=== PATIENT | female | born 1980 | race Caucasian/White ===

== ENCOUNTER 2017-01-21 15:00 | Inpatient (IN) | payer BC ==
--- NOTE | 2017-01-21 15:38 | ED ---
General Adult HPI - General Chief complaint: Psychiatric Symptoms Stated complaint: Mental Health Time Seen by Provider: 01/21/17 15:31 Source: patient, RN notes reviewed Mode of arrival: ambulatory Limitations: no limitations - History of Present Illness Initial comments: Patient 36-year-old female who presents emergency room today with a chief complaint of increased paranoia. She states that she has had depression over the last 5 months. States she saw her family doctor yesterday was started on Zoloft. She states that she's felt somewhat manic since beginning this medication. States had a total of 2 doses. Patient does admit to increased paranoia the last 2 months. She states that she's not been sleeping well. Patient denies any other physical complaints. Patient denies any recent fever, chills, shortness of breath, chest pain, back pain, abdominal pain, nausea or vomiting, numbness or tingling, dysuria or hematuria, constipation or diarrhea, headaches or visual changes, or any other complaints. - Related Data Home Medications Medication Instructions Recorded Confirmed Sertraline HCl [Zoloft] 50 mg PO DAILY 01/21/17 01/21/17 Allergies Allergy/AdvReac Type Severity Reaction Status Date / Time No Known Allergies Allergy Verified 01/21/17 16:07 Review of Systems ROS Statement: Those systems with pertinent positive or pertinent negative responses have been documented in the HPI. ROS Other: All systems not noted in ROS Statement are negative. Past Medical History Past Medical History: No Reported History History of Any Multi-Drug Resistant Organisms: None Reported Past Surgical History: Section Past Psychological History: Anxiety, Depression Smoking Status: Current every day smoker Past Alcohol Use History: Occasional Past Drug Use History: None Reported General Exam - General Exam Comments Initial Comments: General: The patient is awake and alert, in no distress, and does not appear acutely ill. Eye: Pupils are equal, round and reactive to light, extra-ocular movements are intact. No nystagmus. There is normal conjunctiva bilaterally. No signs of icterus. Ears, nose, mouth and throat: There are moist mucous membranes and no oral lesions. Neck: The neck is supple, there is no tenderness or JVD. Cardiovascular: There is a regular rate and rhythm. No murmur, rub or gallop is appreciated. Respiratory: Lungs are clear to auscultation, respirations are non-labored, breath sounds are equal. No wheezes, stridor, rales, or rhonchi. Musculoskeletal: Normal ROM, no tenderness. Strength 5/5. Sensation intact. Pulses equal bilaterally 2+. Neurological: A&O x 3. CN II-XII intact, There are no obvious motor or sensory deficits. Coordination appears grossly intact. Speech is normal. Skin: Skin is warm and dry and no rashes or lesions are noted. Psychiatric: Cooperative, appropriate mood & affect, normal judgment. Limitations: no limitations Course Vital Signs 01/21/17 15:11 Temperature 98.7 F Pulse Rate 85 Respiratory 20 Rate Blood Pressure 129/71 O2 Sat by Pulse 99 Oximetry Medical Decision Making - Medical Decision Making Patient seen here in the emergency room by mental health. They've recommended admission to the hospital. Patient willing to sign himself in. - Lab Data Lab Results 01/21/17 01/21/17 Range/Units 15:50 15:50 Urine HCG, Qual Not Detected (Not Detectd) Urine Opiates Screen Not Detected (NotDetected) Ur Oxycodone Screen Not Detected (NotDetected) Urine Methadone Screen Not Detected (NotDetected) Ur Propoxyphene Screen Not Detected (NotDetected) Ur Barbiturates Screen Not Detected (NotDetected) U Tricyclic Antidepress Not Detected (NotDetected) Ur Phencyclidine Scrn Not Detected (NotDetected) Ur Amphetamines Screen Not Detected (NotDetected) U Methamphetamines Scrn Not Detected (NotDetected) U Benzodiazepines Scrn Not Detected (NotDetected) Urine Cocaine Screen Not Detected (NotDetected) U Marijuana (THC) Screen Not Detected (NotDetected) Disposition Clinical Impression: depression Disposition: TRANSFER TO PSYCH HOSP/UNIT Condition: Stable
[2017-01-21] MEDS ORDERED: LORazepam 1 MG TAB PO STA (16:48)
[2017-01-21] MEDS ORDERED: ZIPRASIDONE 20 MG VIAL IM PRN (17:46)
[2017-01-21] MEDS ORDERED: MAG HYDROX/AL HYDROX/SIMETH 30 ML CUP PO PRN (17:46)
[2017-01-21] MEDS ORDERED: ACETAMINOPHEN TAB 325 MG TAB PO PRN (17:46)
[2017-01-21] MEDS ORDERED: MAGNESIUM HYDROXIDE 2,400 MG/10 ML CUP PO PRN (17:46)
[2017-01-21] MEDS ORDERED: LORazepam 2 MG/ML SYRINGE IM PRN (17:49)
[2017-01-21] MEDS: LORazepam 1 MG TAB PO PRN (21:24)
[2017-01-22 09:02] VITALS: BMI 26.6
[2017-01-22] MEDS: NICOTINE 14MG/24HR PATCH TRANSDERM SCH (09:27)
[2017-01-22 10:07] LABS: Basophils % (A) 0 %; CHCM 31.4; Eosinophils # (A) 0.1 k/uL (0-0.7); Eosinophils % (A) 0 %; HCT 43.4 % (34.0-46.0); HGB 13.5 gm/dL (11.4-16.0); Hypochromasia Slight; Luc # (Auto) 0.13; Luc % (Auto) 1; Lymphocytes # (A) 1.3 k/uL (1.0-4.8); Lymphocytes % (A) 13 %; MCH 27.8 pg (25.0-35.0); MCHC 31.1 g/dL (31.0-37.0); MCV 89.4 fL (80.0-100.0); Mean Platelet Volume 8.2; Monocytes # (A) 0.4 k/uL (0-1.0); Monocytes % (A) 4 %; Neutrophils # (A) 8.1 k/uL (1.3-7.7); Neutrophils % (A) 81 %; RBC 4.86 m/uL (3.80-5.40); RDW 13.5 % (11.5-15.5); WBC (Perox) 10.21
[2017-01-22 10:53] LABS: ALT 17 U/L (9-52); AST 15 U/L (14-36); Alkaline Phosphatase 63 U/L (38-126); Anion Gap 12 mmol/L; Blood Urea Nitrogen 9 mg/dL (7-17); Carbon Dioxide 26 mmol/L (22-30); Chloride 104 mmol/L (98-107); Glucose 86 mg/dL (74-99); Non-African American GFR(MDRD) 58 (>60 ml/min/1.73 sqM); Potassium 4.5 mmol/L (3.5-5.1); Sodium 142 mmol/L (137-145); Total Bilirubin 0.7 mg/dL (0.2-1.3); Total Protein 7.1 g/dL (6.3-8.2)
[2017-01-22] MEDS: LORazepam 1 MG TAB PO PRN (14:25)
--- NOTE | 2017-01-22 15:48 | P.CONS ---
History of Present Illness - Reason for Consult Consult date: 01/22/17 Medical management - History of Present Illness This is a 36-year-old female with no primary care physician. Patient states that she has had depression for a long time and recently went to a physician in [place] and placed on Zoloft. She states she has been suddenly manic related night, keeping her family up, paranoid thoughts. She came into emergency center for evaluation. HCG was not detected. Urine drug screen was negative. Patient has been admitted to the psychiatric unit. She denies any medical complaints. Review of Systems All systems: negative Constitutional: Denies chills, Denies fever Eyes: denies blurred vision, denies pain Ears, nose, mouth and throat: Denies headache, Denies sore throat Cardiovascular: Denies chest pain, Denies shortness of breath Respiratory: Denies cough Gastrointestinal: Denies abdominal pain, Denies diarrhea, Denies nausea, Denies vomiting Genitourinary: Denies dysuria, Denies hematuria Musculoskeletal: Denies myalgias Integumentary: Denies pruritus, Denies rash Neurological: Denies numbness, Denies weakness Psychiatric: Reports confusion, Reports depression, Reports irritability, Reports mood swings, Denies anxiety, Denies suicidal ideation Endocrine: Denies fatigue, Denies weight change Past Medical History Past Medical History: No Reported History History of Any Multi-Drug Resistant Organisms: None Reported Past Surgical History: Section Past Anesthesia/Blood Transfusion Reactions: No Reported Reaction Past Psychological History: Anxiety, Depression Smoking Status: Current every day smoker Past Alcohol Use History: Occasional Additional Past Alcohol Use History / Comment(s): Patient is a smoker of one pack of cigarettes per day for 15 years. She denies any medical marijuana, marijuana, street drug use. Pt. admits to occasional alcohol use-Last drink was 3 weeks ago. Past Drug Use History: None Reported Additional Drug Use History / Comment(s): Pt. denies drug use. UDS negative. - Past Family History Mother Family Medical History: Cancer Additional Family Medical History / Comment(s): Ovaraian Cancer-Patient's mother is alive in her 60s. Father Family Medical History: Cancer Additional Family Medical History / Comment(s): Skin Cancer. Father is alive at age 67 with history of Depression. Brother(s) Family Medical History: No Reported History Additional Family Medical History / Comment(s): Patient has one brother with history of Depression. Sister(s) Family Medical History: No Reported History Additional Family Medical History / Comment(s): Patient has 1 sister with no major medical problems. Medications and Allergies Home Medications Medication Instructions Recorded Confirmed Type Sertraline HCl [Zoloft] 50 mg PO DAILY 01/21/17 01/21/17 History Allergies Allergy/AdvReac Type Severity Reaction Status Date / Time No Known Allergies Allergy Verified 01/21/17 19:23 Physical Exam Vitals: Vital Signs Temp Pulse Pulse Resp BP BP Pulse Ox 01/22/17 06:34 97.9 F 74 20 131/78 01/21/17 18:14 77 16 119/60 01/21/17 17:58 97.9 F 75 18 136/78 99 01/21/17 15:11 98.7 F 85 20 129/71 99 Intake and Output 01/21/17 01/22/17 01/22/17 22:59 06:59 14:59 Other: Weight 77.111 kg 77.111 kg Patient Weight 01/23/17 06:59 Weight 77.111 kg Gen: This is a 36-year-old female. She is cooperative and appears to be in no acute distress. HEENT: Head is atraumatic, normocephalic. Pupils equal, round. Sclerae is anicteric. NECK: Supple. No JVD. No lymphadenopathy. No thyromegaly. LUNGS: Clear to auscultation. No wheezes or rhonchi. No intercostal retractions. HEART: Regular rate and rhythm. No murmur. ABDOMEN: Soft. Bowel sounds are present. No masses. No tenderness. EXTREMITIES: No pedal edema. No calf tenderness. NEUROLOGICAL: Patient is awake, alert and oriented x3. Cranial nerves 2 through 12 are grossly intact. Results CBC & Chem 7: 01/22/17 09:50 01/22/17 09:50 Labs: Abnormal Lab Results - Last 24 Hours (Table) 01/22/17 01/22/17 Range/Units 09:50 09:50 Neutrophils # 8.1 H (1.3-7.7) k/uL Creatinine 1.07 H (0.52-1.04) mg/dL Assessment and Plan Plan: 1. Depression with mood swings after recently starting Zoloft. Patient admitted to the mental health unit. Continue current plan of care. 2. Tobacco use and dependence. Continue nicotine patch. Impression and plan of care have been directed as dictated by the signing physician. Lesvia Viera nurse practitioner acting as scribe for signing physician.
[2017-01-22] MEDS ORDERED: ARIPiprazole 5 MG TAB PO SCH (17:00)
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
[2017-01-23] MEDS: NICOTINE 14MG/24HR PATCH TRANSDERM SCH (09:31)
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
[2017-01-23] MEDS: ARIPiprazole 10 MG TAB PO SCH (21:47)
[2017-01-24] MEDS: NICOTINE 14MG/24HR PATCH TRANSDERM SCH (09:07)
[2017-01-24] MEDS ORDERED: FLUCONAZOLE 150 MG TAB PO STA (20:10)
[2017-01-24] MEDS: ARIPiprazole 10 MG TAB PO SCH (20:50)
[2017-01-25] MEDS: NICOTINE 14MG/24HR PATCH TRANSDERM SCH (08:53)
--- NOTE | 2017-01-25 16:43 | P.PN ---
Progress Note - Text Interval history: Patient is seen in cross coverage today for Dr. Gordillo. She reports that she is feeling much better. Her mood is improved. She relays that the worries and paranoid thoughts are doing much better. She feels like the Abilify is doing well for her and she seems to be tolerating it well. She is sleeping well. She does talk about looking towards discharge. Mental status exam: She is alert and cooperative with the interview. Her speech is fluent, not rapid or pressured. Her thought processes are organized. Her mood is improved and she does not verbalize any mark delusions. She denies any thoughts of harm to self or others. She does not verbalize any hallucinations. Plan: Patient will be maintained on current psychotropic medication regimen. Dr. Gordillo will resume care this patient starting tomorrow.
--- NOTE | 2017-01-25 17:52 | P.PN ---
Progress Note - Text Date of service: 01/24/2017 This note is dictated 01/25/2017, as the previous days note was not found in the system. Patient was seen on 01/24/2017 in cross coverage for Dr Gordillo. Status was improved and patient appeared to be responding well to Abilify. She seemed to be tolerating the Abilify well. She discussed symptoms that she was experiencing that precipitated the inpatient hospitalization. Psychiatric symptoms appeared to be responding very well to the Abilify. Abilify was maintained with plan to monitor for any medication side effects and monitor her ongoing response.
[2017-01-25] MEDS: ARIPiprazole 10 MG TAB PO SCH (20:22)
[2017-01-26 06:44] VITALS: BP 99/57; PULSE 57; RESP 16; TEMP 98.4
[2017-01-26] MEDS: NICOTINE 14MG/24HR PATCH TRANSDERM SCH (08:49)
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
== END 2017-01-26 14:58 | disposition home or self-care (01) | DRG 885 ==
LOC: EC 15:00 → 3MHU 17:44
PROVIDERS: ADMIT Psychiatry & Neurology Psychiatry; ATTEND Psychiatry & Neurology Psychiatry
DX: F29 Unspecified psychosis not due to a substance or known physiological condition (principal); F17.210 Nicotine dependence, cigarettes, uncomplicated; F43.0 Acute stress reaction; F43.10 Post-traumatic stress disorder, unspecified; Z79.899 Other long term (current) drug therapy; Z80.8 Family history of malignant neoplasm of other organs or systems; Z81.8 Family history of other mental and behavioral disorders; Z91.410 Personal history of adult physical and sexual abuse
CPT/HCPCS: 80053; 80306; 81025; 82075; 84443; 85025; 99285

== ENCOUNTER 2018-06-11 16:01 | Inpatient (IN) | payer BC ==
--- NOTE | 2018-06-11 16:50 | ED ---
Psych HPI - General Chief Complaint: Psychiatric Symptoms Stated Complaint: Mental Health Time Seen by Provider: 06/11/18 16:39 Source: patient Mode of arrival: ambulatory - History of Present Illness Initial Comments: Patient is a 38-year-old female presents with a chief complaint of suicidal ideations and depression for 5 days. Patient says that she has a history of depression since the of her last child 2 years ago. She states she has been on venlafaxine since that time, there is been no recent changes to that medication, and she states that until 5 days ago she felt fine. Patient says she has a suicidal plan which includes turning her car on in the garage and sitting in her car. Patient does not have any previous suicide attempts. She is otherwise healthy. - Related Data Home Medications Medication Instructions Recorded Confirmed ARIPiprazole [Abilify] 5 mg PO HS 06/11/18 06/11/18 Venlafaxine HCl [Effexor XR] 75 mg PO DAILY 06/11/18 06/11/18 clonazePAM [KlonoPIN] 0.5 mg PO BID PRN 06/11/18 06/11/18 Allergies Allergy/AdvReac Type Severity Reaction Status Date / Time No Known Allergies Allergy Verified 06/11/18 16:55 Review of Systems ROS Statement: Those systems with pertinent positive or pertinent negative responses have been documented in the HPI. ROS Other: All systems not noted in ROS Statement are negative. Past Medical History Past Medical History: No Reported History History of Any Multi-Drug Resistant Organisms: None Reported Past Surgical History: Section Past Anesthesia/Blood Transfusion Reactions: No Reported Reaction Past Psychological History: Anxiety, Depression Smoking Status: Current every day smoker Past Alcohol Use History: Occasional Past Drug Use History: None Reported - Past Family History Mother Family Medical History: Cancer Additional Family Medical History / Comment(s): Ovaraian Cancer-Patient's mother is alive in her 60s. Father Family Medical History: Cancer Additional Family Medical History / Comment(s): Skin Cancer. Father is alive at age 67 with history of Depression. Brother(s) Family Medical History: No Reported History Additional Family Medical History / Comment(s): Patient has one brother with history of Depression. Sister(s) Family Medical History: No Reported History Additional Family Medical History / Comment(s): Patient has 1 sister with no major medical problems. General Exam Limitations: no limitations General appearance: alert, in no apparent distress Head exam: Present: atraumatic, normocephalic Eye exam: Present: normal appearance ENT exam: Present: normal exam Neck exam: Present: normal inspection Respiratory exam: Present: normal lung sounds bilaterally. Absent: respiratory distress Cardiovascular Exam: Present: regular rate, normal rhythm GI/Abdominal exam: Present: soft. Absent: distended, tenderness Rectal exam: Present: deferred External exam: Present: normal external exam Extremities exam: Present: normal inspection Back exam: Present: normal inspection Neurological exam: Present: alert, oriented X3 Psychiatric exam: Present: normal affect, depressed Skin exam: Present: warm, dry, intact Course Vital Signs 06/11/18 16:32 Temperature 98.5 F Pulse Rate 97 Respiratory 18 Rate Blood Pressure 121/69 O2 Sat by Pulse 99 Oximetry Medical Decision Making - Medical Decision Making The reasons chief complaint of suicidal ideations and a plan to turn her car on in the garage and sit in her car. she is here with her . on initial evaluation, VS stable, patient no in distress. she is coherent and has a good grasp of reality. no psychotic features present at this time. patient to be evaluated with breath alcohol and urine hcg. patient to be evaluated by EPS. 8:53 PM Patient was evaluated by [facility]. Patient signed in voluntarily. She will be admitted to the psychiatric floor. - Lab Data Lab Results 06/11/18 06/11/18 Range/Units 17:00 17:00 Urine Color Colorless Urine Appearance Clear (Clear) Urine pH 6.5 (5.0-8.0) Ur Specific [place] 1.003 (1.001-1.035) Urine Protein Negative (Negative) Urine Glucose (UA) Negative (Negative) Urine Ketones Negative (Negative) Urine Blood Negative (Negative) Urine Nitrite Negative (Negative) Urine Bilirubin Negative (Negative) Urine Urobilinogen <2.0 (<2.0) mg/dL Ur Leukocyte Esterase Negative (Negative) Urine HCG, Qual Not Detected (Not Detectd) Urine Opiates Screen Not Detected (NotDetected) Ur Oxycodone Screen Not Detected (NotDetected) Urine Methadone Screen Not Detected (NotDetected) Ur Propoxyphene Screen Not Detected (NotDetected) Ur Barbiturates Screen Not Detected (NotDetected) U Tricyclic Antidepress Not Detected (NotDetected) Ur Phencyclidine Scrn Not Detected (NotDetected) Ur Amphetamines Screen Not Detected (NotDetected) U Methamphetamines Scrn Not Detected (NotDetected) U Benzodiazepines Scrn Not Detected (NotDetected) Urine Cocaine Screen Not Detected (NotDetected) U Marijuana (THC) Screen Not Detected (NotDetected) Disposition Clinical Impression: Depression, Suicidal ideation Disposition: ADMITTED IP TO THIS HOSP Condition: Good Decision to Admit Reason: Admit from EC - Out of Hospital Transfer - Req. Specs Out of Hospital Transfer - Requested Specifics: Psychiatric Non-ICU
[2018-06-11 18:14] LABS: Appearance,Urine Clear (Clear); Bilirubin,Urine Negative (Negative); Blood,Urine Negative (Negative); Color,Urine Colorless; Glucose,Urine (UA) Negative (Negative); Ketones,Urine Negative (Negative); Leukocyte Esterase,Urine Negative (Negative); Nitrite,Urine Negative (Negative); PH, Urine 6.5 (5.0-8.0); Protein,Urine Negative (Negative); Specific Gravity,Urine 1.003 (1.001-1.035); Urobilinogen,Urine <2.0 mg/dL (<2.0)
[2018-06-11 18:25] LABS: Amphetamine Screen,Urine Not Detected (NotDetected); Barbiturate Screen,Urine Not Detected (NotDetected); Benzodiazepines Screen,Urine Not Detected (NotDetected); Cocaine Screen,Urine Not Detected (NotDetected); Methadone Screen, Urine Not Detected (NotDetected); Opiate Screen,Urine Not Detected (NotDetected); Oxycodone Screen, Urine Not Detected (NotDetected); Phencyclidine Screen,Urine Not Detected (NotDetected); Tricyclic Antidepressant,Urine Not Detected (NotDetected); Urn Cannabinoid Scrn Not Detected (NotDetected)
[2018-06-11] MEDS ORDERED: MAG HYDROX/AL HYDROX/SIMETH 30 ML CUP PO PRN (21:35)
[2018-06-11] MEDS ORDERED: MAGNESIUM HYDROXIDE 2,400 MG/10 ML CUP PO PRN (21:35)
[2018-06-11] MEDS ORDERED: ACETAMINOPHEN TAB 325 MG TAB PO PRN (21:35)
[2018-06-11] MEDS ORDERED: ZIPRASIDONE 20 MG VIAL IM PRN (21:35)
[2018-06-11] MEDS ORDERED: clonazePAM 0.5 MG TAB PO PRN (21:37)
[2018-06-11] MEDS ORDERED: ARIPiprazole 10 MG TAB PO SCH (21:45)
[2018-06-11] MEDS: NICOTINE 14MG/24HR PATCH TRANSDERM SCH (22:02)
[2018-06-11 23:26] VITALS: BMI 28.0
[2018-06-12] MEDS: NICOTINE 14MG/24HR PATCH TRANSDERM SCH (08:27)
[2018-06-12] MEDS ORDERED: VENLAFAXINE HCL 75 MG TAB PO SCH (09:00)
[2018-06-12 09:14] LABS: Basophils % (A) 0 %; Eosinophils # (A) 0.3 k/uL (0-0.7); Eosinophils % (A) 6 %; HCT 45.3 % (34.0-46.0); HGB 14.8 gm/dL (11.4-16.0); Lymphocytes # (A) 1.7 k/uL (1.0-4.8); Lymphocytes % (A) 31 %; MCH 30.7 pg (25.0-35.0); MCHC 32.6 g/dL (31.0-37.0); MCV 94.4 fL (80.0-100.0); Mean Platelet Volume 7.5; Monocytes # (A) 0.3 k/uL (0-1.0); Monocytes % (A) 5 %; Neutrophils # (A) 2.9 k/uL (1.3-7.7); Neutrophils % (A) 55 %; Platelet Count 259 k/uL (150-450); RDW 11.9 % (11.5-15.5); WBC 5.3 k/uL (3.8-10.6)
[2018-06-12 09:30] LABS: ALT 23 U/L (9-52); AST 20 U/L (14-36); Alkaline Phosphatase 45 U/L (38-126); Anion Gap 8 mmol/L; Bilirubin, Delta 0.3 mg/dL (0.0-0.2); Bilirubin,Unconjugated 0.1 mg/dL (0.0-1.1); Blood Urea Nitrogen 18 mg/dL (7-17); Calcium 9.2 mg/dL (8.4-10.2); Carbon Dioxide 27 mmol/L (22-30); Chloride 107 mmol/L (98-107); Cholesterol 170 mg/dL (<200); Glucose 122 mg/dL (74-99); HDL Cholesterol 49 mg/dL (40-60); LDL Cholesterol,Calculated 107 mg/dL (0-99); Potassium 4.8 mmol/L (3.5-5.1); Sodium 142 mmol/L (137-145); Total Bilirubin 0.4 mg/dL (0.2-1.3); Total Protein 6.4 g/dL (6.3-8.2); Triglycerides 72 mg/dL (<150)
--- NOTE | 2018-06-12 12:09 | P.HP ---
Psychiatric H&P - . H&P Date: 06/12/18 History & Physical: Allergies Allergy/AdvReac Type Severity Reaction Status Date / Time No Known Allergies Allergy Verified 06/11/18 21:55 Vital Signs Temp 97.9 F 06/12/18 06:38 Pulse 72 06/12/18 06:38 Resp 18 06/12/18 06:38 BP 106/60 06/12/18 06:38 Pulse Ox 99 06/11/18 16:32 Intake & Output 06/11/18 06/12/18 06/12/18 18:59 06:59 18:59 Weight 81.647 kg 81.2 kg Laboratory Last Values WBC 5.3 k/uL (3.8-10.6) 06/12/18 08:42 RBC 4.80 m/uL (3.80-5.40) 06/12/18 08:42 Hgb 14.8 gm/dL (11.4-16.0) 06/12/18 08:42 Hct 45.3 % (34.0-46.0) 06/12/18 08:42 MCV 94.4 fL (80.0-100.0) 06/12/18 08:42 MCH 30.7 pg (25.0-35.0) 06/12/18 08:42 MCHC 32.6 g/dL (31.0-37.0) 06/12/18 08:42 RDW 11.9 % (11.5-15.5) 06/12/18 08:42 Plt Count 259 k/uL (150-450) 06/12/18 08:42 Neutrophils % 55 % 06/12/18 08:42 Lymphocytes % 31 % 06/12/18 08:42 Monocytes % 5 % 06/12/18 08:42 Eosinophils % 6 % 06/12/18 08:42 Basophils % 0 % 06/12/18 08:42 Neutrophils # 2.9 k/uL (1.3-7.7) 06/12/18 08:42 Lymphocytes # 1.7 k/uL (1.0-4.8) 06/12/18 08:42 Monocytes # 0.3 k/uL (0-1.0) 06/12/18 08:42 Eosinophils # 0.3 k/uL (0-0.7) 06/12/18 08:42 Basophils # 0.0 k/uL (0-0.2) 06/12/18 08:42 Sodium 142 mmol/L (137-145) 06/12/18 08:42 Potassium 4.8 mmol/L (3.5-5.1) 06/12/18 08:42 Chloride 107 mmol/L (98-107) 06/12/18 08:42 Carbon Dioxide 27 mmol/L (22-30) 06/12/18 08:42 Anion Gap 8 mmol/L 06/12/18 08:42 BUN 18 mg/dL (7-17) H 06/12/18 08:42 Creatinine 0.92 mg/dL (0.52-1.04) 06/12/18 08:42 Est GFR (CKD-EPI)AfAm >90 (>60 ml/min/1.73 sqM) 06/12/18 08:42 Est GFR (CKD-EPI)NonAf 79 (>60 ml/min/1.73 sqM) 06/12/18 08:42 Glucose 122 mg/dL (74-99) H 06/12/18 08:42 Calcium 9.2 mg/dL (8.4-10.2) 06/12/18 08:42 Total Bilirubin 0.4 mg/dL (0.2-1.3) 06/12/18 08:42 Conjugated Bilirubin 0.0 mg/dL (0.0-0.3) 06/12/18 08:42 Unconjugated Bilirubin 0.1 mg/dL (0.0-1.1) 06/12/18 08:42 Delta Bilirubin 0.3 mg/dL (0.0-0.2) H 06/12/18 08:42 AST 20 U/L (14-36) 06/12/18 08:42 ALT 23 U/L (9-52) 06/12/18 08:42 Alkaline Phosphatase 45 U/L (38-126) 06/12/18 08:42 Total Protein 6.4 g/dL (6.3-8.2) 06/12/18 08:42 Albumin 4.0 g/dL (3.5-5.0) 06/12/18 08:42 Triglycerides 72 mg/dL (<150) 06/12/18 08:42 Cholesterol 170 mg/dL (<200) 06/12/18 08:42 LDL Cholesterol, Calc 107 mg/dL (0-99) H 06/12/18 08:42 HDL Cholesterol 49 mg/dL (40-60) 06/12/18 08:42 TSH 1.420 mIU/L (0.465-4.680) 06/12/18 08:42 Urine Color Colorless 06/11/18 17:00 Urine Appearance Clear (Clear) 06/11/18 17:00 Urine pH 6.5 (5.0-8.0) 06/11/18 17:00 Ur Specific [place] 1.003 (1.001-1.035) 06/11/18 17:00 Urine Protein Negative (Negative) 06/11/18 17:00 Urine Glucose (UA) Negative (Negative) 06/11/18 17:00 Urine Ketones Negative (Negative) 06/11/18 17:00 Urine Blood Negative (Negative) 06/11/18 17:00 Urine Nitrite Negative (Negative) 06/11/18 17:00 Urine Bilirubin Negative (Negative) 06/11/18 17:00 Urine Urobilinogen <2.0 mg/dL (<2.0) 06/11/18 17:00 Ur Leukocyte Esterase Negative (Negative) 06/11/18 17:00 Urine HCG, Qual Not Detected (Not Detectd) 06/11/18 17:00 Urine Opiates Screen Not Detected (NotDetected) 06/11/18 17:00 Ur Oxycodone Screen Not Detected (NotDetected) 06/11/18 17:00 Urine Methadone Screen Not Detected (NotDetected) 06/11/18 17:00 Ur Propoxyphene Screen Not Detected (NotDetected) 06/11/18 17:00 Ur Barbiturates Screen Not Detected (NotDetected) 06/11/18 17:00 U Tricyclic Antidepress Not Detected (NotDetected) 06/11/18 17:00 Ur Phencyclidine Scrn Not Detected (NotDetected) 06/11/18 17:00 Ur Amphetamines Screen Not Detected (NotDetected) 06/11/18 17:00 U Methamphetamines Scrn Not Detected (NotDetected) 06/11/18 17:00 U Benzodiazepines Scrn Not Detected (NotDetected) 10/26/18 17:00 Urine Cocaine Screen Not Detected (NotDetected) 06/11/18 17:00 U Marijuana (THC) Screen Not Detected (NotDetected) 06/11/18 17:00 06/12/18 12:05 Identifying Information 38 year old woman. She lives in a house with her and five children. 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 Chief complaint Crying and feeling suicidal over the past five days. History of presenting illness She says she needs medication adjustments . She claims to have tried to come off of her abilify with her primary care doctors approval during the second week of march. She stated she did not talk and did not move when she came off of her abilify and has resumed he abilify at the dose of 5mg per day during the first week of April. She claims her primary care physician has increased her effexor dose from 37.5mg po qday to 75mg po qday a month ago as patient was not feeling good/she had difficulty coming off of her abilify. She is currently asking does she have to stay on abilify for the rest of her life. She claims she was started on abilify one and half years ago for post psychosis. She currently reports having no interest or motivation. She wasnt taking good care of her self and her two year old child. She also reports having passive suicidal thought with no intention of acting on those thoughts. She reports to have felt sad, worried, hopeless with thoughts of wanting to kill herself. She had a plan of wanting to asphyxiate herself by sitting in a running car in her garage. However she did not want to kill her self and told her friends and her about her thoughts. She states she wants to live for her children and does not want to end her life. She reports her brought her to the hospital. She denies any recent stressors other than her unsuccessful attempt with coming off of her abilify. She denies current auditory or visual hallucinations. She denies paranoia. She reports good sleep and appetite. Past psychiatric history She reports being started on psychiatric medications following the of her child one and half years ago. 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 She claims being hospitalized for one week following the of her child one and half years ago. She reports being treated with abilify, effexor and klonopin. She claims she did not follow up with psychiatrist following her discharge from the hospital as she felt good. She reports to have been getting her prescriptions for effexor, abilify and klonopin through her primary care physician for the past one year. Denies suicidal attempts. Other medication trials Zoloft : Could not tolerate it. Substance use history History of marijuana and alcohol use from the age of 14. She reports smoking marijuana every day until 20 years ago. She reports drinking liquor every day. She claims her last drink was one and half months ago and drank three glasses of liquor. Denies rehab treatment. Denies withdrawal symptoms. Denies use of other illicit drugs. Legal problems None reported Family psychiatric treatment history Father and brother diagnosed with depression. Father takes Zoloft and brother takes effexor. Medical history Endometrial ablation due to heavy menstrual bleeding, tubal ligation, caesarian section. Social history Born in [place], [place]. She reports being raised by both her parents. She reports good childhood and denies history of abuse. She has one sister and one brother. She graduated highschool and some college education. Got around the age of 22. 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 Mental status exam 38 year old woman. She is dressed in hospital gown. Her grooming and hygiene are marginal and has a foul body odor. She maintains good eye contact. No abnormal movements noted. Her speech and thought process are goal directed. Her mood is depressed and affect constricted. She denies current auditory or visual hallucinations. She denies paranoia. She reports passive suicidal ideations with no plan at this time. She denies homicidal ideations. She is alert and oriented X 4. Intact memory with fair insight and judgment. Diagnosis Major depression recurrent type. 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 Plan 38-year-old female admitted through emergency department with worsening depression and suicidal ideations. signed voluntary treatment consent. Medicine consult for physical examination psychosocial evaluation. Continue her out patient medication effexor for depression. Will increase the dose of effexor to 112.5mg po qday. Patient who has been prescribed abilify for post psychosis has attempted to wean herself off of her abilify but was unsuccessful. After discussing benefits and risks of medications she has agreed to take zyprexa. Will start her on zyprexa 2.5mg po qhs. Will discontinue abilify. Patients need to continue her antipsychotic medication will be determined by her outpatient psychiatrist. Monitor for symptoms 24 hour nursing care and supervision will receive milieu therapy group therapy individual therapy occupational therapy recreational therapy and psychoeducation. Discharge with outpatient follow-up. Referral to out patient substance use program Treatment goals: Medication stabilization of depression She will continue to be free of suicide thoughts and behavior.
--- NOTE | 2018-06-12 14:27 | P.HPMEDMHU ---
History of Present Illness H&P Date: 06/12/18 Chief Complaint: depression Patient is a 38-year-old female with a past medical history of tobacco abuse, depression, and psychosis who is bandaged mental health unit for depression with suicidal ideation. We're asked to evaluate her for medical H&P. Patient seen and examined at bedside. He has no chronic medical conditions. She only takes medications for depression on a chronic basis. She denies any recent cough, cold, fever, flu, nausea, vomiting, diarrhea, constipation, or dysuria. She has no other complaints currently. She has been having increased depression. Review of Systems Pertinent positives and negatives as discussed in HPI, a complete review of systems was performed and all other systems are negative. Past Medical History Past Medical History: No Reported History History of Any Multi-Drug Resistant Organisms: None Reported Past Surgical History: Section Additional Past Surgical History / Comment(s): Uterine ablation Past Anesthesia/Blood Transfusion Reactions: No Reported Reaction Smoking Status: Current every day smoker Past Alcohol Use History: Rare Past Drug Use History: None Reported - Past Family History Mother Family Medical History: Cancer Additional Family Medical History / Comment(s): Ovaraian Cancer-Patient's mother is alive in her 60s. Father Family Medical History: Cancer Additional Family Medical History / Comment(s): Skin Cancer. Father is alive at age 67 with history of Depression. Brother(s) Family Medical History: No Reported History Additional Family Medical History / Comment(s): Patient has one brother with history of Depression. Sister(s) Family Medical History: No Reported History Additional Family Medical History / Comment(s): Patient has 1 sister with no major medical problems. Medications and Allergies Home Medications Medication Instructions Recorded Confirmed Type ARIPiprazole [Abilify] 10 mg PO HS 06/11/18 06/11/18 History Venlafaxine HCl [Effexor] 75 mg PO DAILY 06/11/18 06/11/18 History clonazePAM [KlonoPIN] 0.5 mg PO BID PRN 06/11/18 06/11/18 History Allergies Allergy/AdvReac Type Severity Reaction Status Date / Time No Known Allergies Allergy Verified 06/11/18 21:55 Physical Exam Osteopathic Statement: *. No significant issues noted on an osteopathic structural exam other than those noted in the History and Physical/Consult. Vitals: Vital Signs Temp Pulse Pulse Resp BP BP Pulse Ox 06/12/18 06:38 97.9 F 72 18 106/60 06/11/18 22:02 99.0 F 90 16 110/82 06/11/18 16:32 98.5 F 97 18 121/69 99 Intake and Output 06/11/18 06/12/18 06/12/18 22:59 06:59 14:59 Other: Weight 81.2 kg General: non toxic, no distress, appears at stated age, normal weight Derm: no unusual rashes/lesions no unusual ecchymoses, warm, dry Head: atraumatic, normocephalic, symmetric Eyes: EOMI, no lid lag, anicteric sclera, pupils equal round reactive to light ENT: Nose and ears atraumatic, no thrush, no pharyngeal erythema Neck: No thyromegaly, no cervical lymphadenopathy, trachea midline, supple Mouth: no lip lesion, mucus membranes moist Cardiovascular: S1S2 reg, no murmur, no JVD Lungs: CTA bilateral, no rhonchi, no rales , no accessory muscle use Abdominal: soft, nontender to palpation, no guarding, no appreciable organomegaly, normal bowel sounds Ext: no gross muscle atrophy, drink grossly intact all 4 extremities, no contractures, Neuro: CN II-XI grossly intact, normal gait, balance intact Psych: Alert, oriented, appropriate affect Cranial Nerve Examination - Cranial Nerves Cranial Nerve II- Optic: Intact Cranial Nerve III- Oculomotor: Intact Cranial Nerve IV- Trochlear: Intact Cranial Nerve V- Trigeminal: Intact Cranial Nerve - Abducens: Intact Cranial Nerve VII- Facial: Intact Cranial Nerve VIII- Auditory: Intact Cranial Nerve IX- Glossopharyngeal: Intact Cranial Nerve X- Vagus: Intact Cranial Nerve XI- Accessory: Intact Cranial Nerve XII- Hypoglossal: Intact Results CBC & Chem 7: 06/12/18 08:42 06/12/18 08:42 Labs: Abnormal Lab Results - Last 24 Hours (Table) 06/12/18 Range/Units 08:42 BUN 18 H (7-17) mg/dL Glucose 122 H (74-99) mg/dL Delta Bilirubin 0.3 H (0.0-0.2) mg/dL LDL Cholesterol, Calc 107 H (0-99) mg/dL Thrombosis Risk Factor Assmnt - DVT/VTE Prophylaxis DVT/VTE Prophylaxis: Low risk, early ambulation encouraged - Choose All That Apply Any of the Below Risk Factors Present?: Yes Each Factor Represents 1 point: Obesity (BMI >25), Oral contraceptives or hormone replacement therapy Other Risk Factors: No Other congenital or acquired thrombophilia - If yes, enter type in comment: No Thrombosis Risk Factor Assessment Total Risk Factor Score: 2 Thrombosis Risk Factor Assessment Level: Low Risk Assessment and Plan Assessment: Tobacco abuse -Cessation -Nicotine replacement Depression with suicidal ideation -Your psych management Thank you for allowing us to participate in the care of this patient. We will follow peripherally. Do not hesitate to contact us with questions. Someone can be reached from the [facility] hospitalist group at all hours of the day at [phone].
[2018-06-12 21:14] LABS: Hemoglobin A1C 5.3 % (4.0-6.0)
[2018-06-13] MEDS: NICOTINE 14MG/24HR PATCH TRANSDERM SCH (09:19)
[2018-06-13] MEDS: VENLAFAXINE HCL 75 MG TAB PO SCH (09:22)
--- NOTE | 2018-06-13 18:58 | P.PN ---
Progress Note - Text Progress Note Date: 06/13/18 IDENTIFICATION DATA: 38-year-old female admitted through emergency department with worsening depression and suicidal ideations. She has history of post psychosis for which she takes abilify. Most recently she has tried to wean herself off of abilify but was unsuccessful which also seems to have worsened her depression. INTERVAL HISTORY: She reports feeling better today. She is currently wondering about going home. Her visited her yesterday . She denies current suicidal or homicidal ideations. She repors going to all her groups. She is complaint with her medications and denies side effects. MENTAL STATUS EXAMINATION: Patient appears her stated age in fair grooming and hygiene. She maintains good eye contact. Mood is reported as better and affect constricted. Her speech is normal rate, tone and volume. Her though t process is goal directed. She denies current auditory or visual hallucinations. She denies paranoia. She is alert and oriented X 4. She denies current suicidal or homicidal ideations. ASSESSMENT AND PLAN: Continue current medications Continue monitoring Continue safety precautions
[2018-06-14] MEDS: NICOTINE 14MG/24HR PATCH TRANSDERM SCH (08:07)
[2018-06-14] MEDS: VENLAFAXINE HCL 75 MG TAB PO SCH (08:08)
--- NOTE | 2018-06-14 13:52 | P.PN ---
Subjective Progress Note Date: 06/14/18 Principal diagnosis: Major depressive disorder recurrent mild psychosis and suicidal ideation INTERVAL HISTORY: She reports feeling better today. She is currently wondering about going home. Her visited her yesterday . She denies current suicidal or homicidal ideations. She repors going to all her groups. She is complaint with her medications and denies side effects. . Objective - Vital Signs Vital signs: Vital Signs Temp 98 F 06/14/18 06:24 Pulse 64 06/14/18 06:24 Resp 18 06/14/18 06:24 BP 115/57 06/14/18 06:24 Pulse Ox 99 06/11/18 16:32 Intake & Output 06/13/18 06/14/18 06/14/18 18:59 06:59 18:59 Weight 82.5 kg - Labs CBC & Chem 7: 06/12/18 08:42 06/12/18 08:42 Assessment and Plan Assessment: MENTAL STATUS EXAMINATION: Patient appears her stated age in fair grooming and hygiene. She maintains good eye contact. Mood is reported as better 6 out of 10 depression and affect constricted. She does state that her anxiety is not as bad as when she entered rates at 4 out of 10. Her speech is normal rate, tone and volume. Her though t process is goal directed but has a halting speech pattern at times. She denies current auditory or visual hallucinations. She denies paranoia. She is alert and oriented X 4. 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 She returned to the hospital this time because she was relieved of depression and psychosis 2 years ago after the of her son which was by . She didn't want to try Abilify because of the side effects of it may have and she was agreeable to try Invega 3 mg by mouth daily at bedtime and I also increased her venlafaxine 150 mg extended release by mouth daily at bedtime. She wanted no one should go home and I stated 3 more days including today and she'll be able to go home. [place] and states that she is going 2-year-old son in daycare so that she can go outside and work with her . She likes the farming aspect especially cows. Time with Patient: Less than 30
[2018-06-14] MEDS: PALIPERIDONE 3 MG TAB.ER.24 PO SCH (20:18)
[2018-06-14] MEDS ORDERED: VENLAFAXINE HCL ER 150 MG CAP PO SCH (21:00)
[2018-06-15] MEDS: NICOTINE 14MG/24HR PATCH TRANSDERM SCH (08:18)
--- NOTE | 2018-06-15 12:23 | P.PN ---
Subjective Progress Note Date: 06/15/18 Principal diagnosis: Major depressive disorder recurrent mild psychosis and suicidal ideation INTERVAL HISTORY: She reports feeling better today. She is currently wondering about going home. Her visited her yesterday . She denies current suicidal or homicidal ideations. She reports going to all her groups. She is complaint with her medications and denies side effects. She denies any auditory or visual hallucinations. Her sleep was not as well due to the bed. Discussed in detail about taking her medications on an outpatient basis and she goes to [facility]. . Objective - Vital Signs Vital signs: Vital Signs Temp 97.9 F 06/15/18 06:47 Pulse 65 06/15/18 06:47 Resp 16 06/15/18 06:47 BP 102/58 06/15/18 06:47 Pulse Ox 99 06/11/18 16:32 - Labs CBC & Chem 7: 06/12/18 08:42 06/12/18 08:42 Assessment and Plan Assessment: MENTAL STATUS EXAMINATION: Patient appears her stated age in fair grooming and hygiene. She maintains good eye contact. Mood is reported as better 6 out of 10 depression and affect constricted. She does state that her anxiety is not as bad as when she entered rates at 4 out of 10. Her speech is normal rate, tone and volume. Her though t process is goal directed but has a halting speech pattern at times. She denies current auditory or visual hallucinations. She denies paranoia. She is alert and oriented X 4. 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 She returned to the hospital this time because she was relieved of depression and psychosis 2 years ago after the of her son which was by . She didn't want to try Abilify because of the side effects of it may have and she was agreeable to try Invega 3 mg by mouth daily at bedtime and I also increased her venlafaxine 225 mg extended release by mouth daily at bedtime. She wanted no one should go home and I stated 3 more days including today and she'll be able to go home. [place] and does the books and states that she is going 2-year-old son in daycare so that she can go outside and work with her . She likes the farming aspect especially cows.
[2018-06-15] MEDS: PALIPERIDONE 3 MG TAB.ER.24 PO SCH (20:13)
[2018-06-15] MEDS ORDERED: VENLAFAXINE HCL ER 75 MG CAP PO SCH (21:00)
[2018-06-16 06:52] VITALS: BP 111/59; PULSE 66; RESP 14; TEMP 97.8
[2018-06-16] MEDS: NICOTINE 14MG/24HR PATCH TRANSDERM SCH (08:12)
--- NOTE | 2018-06-16 09:59 | P.DS ---
Providers Date of admission: 06/11/18 20:24 Expected date of discharge: 06/16/18 Attending physician: Nelson Pérez DO Consults: 06/11/18 21:35 Consult Physician Routine Consulting Provider: Lenka Physician Consult Reason/Comments: H & P and medical care Do you want consulting provider notified?: Yes Primary care physician: Eduar Lemos - Discharge Diagnosis(es) (1) Depression INTERVAL HISTORY: She reports feeling better today. She is currently wondering about going home. Her visited her yesterday . She denies current suicidal or homicidal ideations. She reports going to all her groups. She is complaint with her medications and denies side effects. She denies any auditory or visual hallucinations. Her sleep was not as well due to the bed. 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 She lives in a house with her and five children. She work apartment house manager as book keeper. Chief complaint Crying and feeling suicidal over the past five days. History of presenting illness She says she needs medication adjustments . She claims to have tried to come off of her abilify with her primary care doctors approval during the second week of march. She stated she did not talk and did not move when she came off of her abilify and has resumed he abilify at the dose of 5mg per day during the first week of April. She claims her primary care physician has increased her effexor dose from 37.5mg po qday to 75mg po qday a month ago as patient was not feeling good/she had difficulty coming off of her abilify. She is currently asking does she have to stay on abilify for the rest of her life. She claims she was started on abilify one and half years ago for post psychosis. She currently reports having no interest or motivation. She wasnt taking good care of her self and her two year old child. She also reports having passive suicidal thought with no intention of acting on those thoughts. She reports to have felt sad, worried, hopeless with thoughts of wanting to kill herself. She had a plan of wanting to asphyxiate herself by sitting in a running car in her garage. However she did not want to kill her self and told her friends and her about her thoughts. She states she wants to live for her children and does not want to end her life. She reports her brought her to the hospital. She denies any recent stressors other than her unsuccessful attempt with coming off of her abilify. She denies current auditory or visual hallucinations. She denies paranoia. She reports good sleep and appetite. Past psychiatric history She reports being started on psychiatric medications following the of her child one and half years ago. 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 She claims being hospitalized for one week following the of her child one and half years ago. She reports being treated with abilify, effexor and klonopin. She claims she did not follow up with psychiatrist following her discharge from the hospital as she felt good. She reports to have been getting her prescriptions for effexor, abilify and klonopin through her primary care physician for the past one year. Denies suicidal attempts. Other medication trials Zoloft : Could not tolerate it. Current Hospital course she was titrated on her venlafaxine to 225 mg and switch to Invega 3 mg at bedtime. MENTAL STATUS EXAMINATION: Patient appears her stated age in fair grooming and hygiene. She maintains good eye contact. Mood is reported as better 6 out of 10 depression and affect constricted. She does state that her anxiety is not as bad as when she entered rates at 4 out of 10. Her speech is normal rate, tone and volume. Her though t process is goal directed but has a halting speech pattern at times. She denies current auditory or visual hallucinations. She denies paranoia. She is alert and oriented X 4. She denies current suicidal or homicidal ideation Diagnoses: Major depressive disorder with psychotic features precipitated by 2 years ago now stable without suicidal or homicidal ideation Plan is to follow-up with her primary care physician therapist and continue on her medication Patient Condition at Discharge: Good Plan - Discharge Summary Discharge Rx Participant: No New Discharge Prescriptions: New Paliperidone [Invega] 3 mg PO 2100 30 Days #30 tab.er.24 Venlafaxine HCl ER [Effexor XR] 225 mg PO 2100 30 Days #30 cap.er.24h Continue clonazePAM [KlonoPIN] 0.5 mg PO BID PRN PRN Reason: Anxiety Discontinued Venlafaxine HCl [Effexor] 75 mg PO DAILY ARIPiprazole [Abilify] 10 mg PO HS Discharge Medication List clonazePAM [KlonoPIN] 0.5 mg PO BID PRN 06/11/18 [History] Paliperidone [Invega] 3 mg PO 2100 30 Days #30 tab.er.24 06/16/18 [Rx] Venlafaxine HCl ER [Effexor XR] 225 mg PO 2100 30 Days #30 cap.er.24h 06/16/18 [ Rx] Follow up Appointment(s)/Referral(s): Eduar Lemos MD [Primary Care Provider] - As Needed Patient Instructions/Handouts: How to Stop Smoking (GEN), Depression (GEN), Suicide Prevention (GEN) Activity/Diet/Wound Care/Special Instructions: Activity and diet as tolerated. Avoid the use of street drugs and alcohol. Take all medications as prescribed. When you are in need of refills on your medications please contact your medical provider and/or outpatient psychiatrist to have this done. Please go to scheduled outpatient appointment for aftercare treatment. If symptoms return or become worse, call the crisis line at [phone] and/or go to the nearest emergency room for evaluation. Discharge Disposition: HOME SELF-CARE
== END 2018-06-16 13:07 | disposition home or self-care (01) | DRG 885 ==
LOC: EC 16:01 → 3MHU 20:24
PROVIDERS: ADMIT Psychiatry & Neurology Psychiatry; ATTEND Psychiatry & Neurology Psychiatry
DX: F32.3 Major depressive disorder, single episode, severe with psychotic features (principal); R45.851 Suicidal ideations; F41.9 Anxiety disorder, unspecified; F17.210 Nicotine dependence, cigarettes, uncomplicated; Z71.6 Tobacco abuse counseling; F10.10 Alcohol abuse, uncomplicated; F12.11 Cannabis abuse, in remission; Z79.899 Other long term (current) drug therapy; Z98.51 Tubal ligation status; Z98.891 History of uterine scar from previous surgery; Z80.8 Family history of malignant neoplasm of other organs or systems; Z81.8 Family history of other mental and behavioral disorders; Z80.41 Family history of malignant neoplasm of ovary
CPT/HCPCS: 80053; 80061; 80306; 81003; 81025; 82075; 82248; 83036; 84443; 85025; 99285

== ENCOUNTER → 2023-11-11 | Outpatient (CLI) | payer BC ==
--- NOTE | 2023-11-11 14:48 | P.HPBAR ---
Bariatric H&P - History & Physicial H&P Date: 11/11/23 History & Physicial: Visit/CC: Patient initial contact: Initial weight: Initial weight in pounds: Height: Initial BMI: : Last weight: Current weight: Current weight in pounds: Current BMI: [place] body weight (based on NIH guidelines): Excess body weight loss: The patient is a 43 year-old F who presents for Bariatric Assessment. Family with normal weight. Highest weight of present. She has heartburn. Medications for 5 years she attributes with weight gain. Lowest weight is 150 pounds. NO gallbladder. Has hysterectomy and . Dad on blood thinners. No IBD in family. No GI cancers. Knee pain no ankle pain. No hips or back. She snores. She is pending sleep apnea. She feels tired during the day. No change in bowels. Friends has gastric bypass. She wants back to 150 pounds. No nicotine environment. Has saxenda and adipex tried of 25 pounds. Adipex made her feel good. Needs labs and EGD. Later colon at age 44. Past Medical History Past Medical History: No Reported History History of Any Multi-Drug Resistant Organisms: None Reported Past Surgical History: Section Additional Past Surgical History / Comment(s): Uterine ablation Past Anesthesia/Blood Transfusion Reactions: No Reported Reaction Past Alcohol Use History: Rare Past Drug Use History: None Reported - Past Family History Mother Family Medical History: Cancer Additional Family Medical History / Comment(s): Ovaraian Cancer-Patient's mother is alive in her 60s. Father Family Medical History: Cancer Additional Family Medical History / Comment(s): Skin Cancer. Father is alive at age 67 with history of Depression. Brother(s) Family Medical History: No Reported History Additional Family Medical History / Comment(s): Patient has one brother with history of Depression. Sister(s) Family Medical History: No Reported History Additional Family Medical History / Comment(s): Patient has 1 sister with no major medical problems. Bariatric Checklist Checklist: Plan: Checklist: EGD: 1. Hiatal hernia: 2. H. Pylori: HgbA1c: Vitamin D: Smoking: Current every day smoker Primary care physician referral: [facility] Psychiatry clearance: Cardiology clearance: Sleep study: Diet journal: VTE risk score: VTE risk level: Rehab needs at discharge:
[2023-11-11 15:17] VITALS: BP 116/74; PULSE 67; RESP 16; TEMP 98.2; BMI 40.2
== END ==
LOC: BARWHC3 13:06
PROVIDERS: ATTEND Surgery Plastic and Reconstructive Surgery
DX: E66.01 Morbid (severe) obesity due to excess calories (principal); Z53.9 Procedure and treatment not carried out, unspecified reason
CPT/HCPCS: 99202

== ENCOUNTER 2024-02-29 07:30 | Day surgery (SDC) | payer BC ==
[~2024-02-29 07:30] MED LIST: LIDOCAINE 1% (10MG/ML) FOR IV START INTRADERMA PRN
[2024-02-29] MEDS: IV FLUID CONTINUATION 1,000 ML IV ONE (07:43)
[2024-02-29] MEDS: LACTATED RINGERS 1,000 ML IV SCH (07:58)
--- NOTE | 2024-02-29 07:58 | P.GSHP ---
History of Present Illness H&P Date: 02/29/24 CHIEF COMPLAINT: GERD HISTORY OF PRESENT ILLNESS: The patient is a 43-year-old female who presents reports gastroesophageal reflux disease. Upper endoscopy was offered for further evaluation and management. PAST MEDICAL HISTORY: Please see list. PAST SURGICAL HISTORY: Please see list. MEDICATIONS: Please see list. ALLERGIES: Please see list. SOCIAL HISTORY: No illicit drug use FAMILY HISTORY: No reports of Crohn disease or ulcerative colitis. REVIEW OF ORGAN SYSTEMS: CONSTITUTIONAL: No reports of fevers or chills. GI: Denies any blood in stools or constipation. PHYSICAL EXAM: VITAL SIGNS: Stable GENERAL: Well-developed and pleasant in no acute distress. HEENT: No scleral icterus. Extraocular movements grossly intact. Moist buccal mucosa. NECK: Supple without lymphadenopathy. CHEST: Unlabored respirations. Equal bilateral excursions. CARDIOVASCULAR: Regular rate and rhythm. Distal 2+ pulses. ABDOMEN: Soft, nondistended. MUSCULOSKELETAL: No clubbing, cyanosis, or edema. ASSESSMENT: 1. Gastroesophageal reflux disease PLAN: 1. Recommend proceeding with an upper endoscopy Past Medical History Past Medical History: Sleep Apnea/CPAP/BIPAP Additional Past Medical History / Comment(s): uses cpap History of Any Multi-Drug Resistant Organisms: None Reported Past Surgical History: Section, Hysterectomy, Uterine Ablation Additional Past Surgical History / Comment(s): Uterine ablation Past Anesthesia/Blood Transfusion Reactions: No Reported Reaction Smoking Status: Former smoker - Past Family History Mother Family Medical History: Cancer Additional Family Medical History / Comment(s): Ovaraian Cancer-Patient's mother is alive in her 60s. Father Family Medical History: Cancer Additional Family Medical History / Comment(s): Skin Cancer. Father is alive at age 67 with history of Depression. Brother(s) Family Medical History: No Reported History Additional Family Medical History / Comment(s): Patient has one brother with history of Depression. Sister(s) Family Medical History: No Reported History Additional Family Medical History / Comment(s): Patient has 1 sister with no major medical problems. Medications and Allergies Home Medications Medication Instructions Recorded Confirmed Type Paliperidone [Invega] 3 mg PO 2100 30 Days #30 tab.er.24 06/16/18 02/23/24 Rx Estrogens, Conjugated [Premarin] 0.3 mg PO DAILY 11/12/23 02/23/24 History busPIRone HCl [Buspar] 5 mg PO TID 11/12/23 02/23/24 History traZODone HCL 100 mg PO HS 11/12/23 02/23/24 History Divalproex Sodium [Divalproex 250 mg PO DAILY 02/23/24 02/23/24 History Sodium ER] Allergies Allergy/AdvReac Type Severity Reaction Status Date / Time No Known Allergies Allergy Verified 02/23/24 15:25
[2024-02-29] MEDS ORDERED: PROPOFOL 10 MG/ML 20 ML VIAL IV ONE (07:59)
[2024-02-29 08:01] VITALS: TEMP 97.8
[2024-02-29 08:29] VITALS: BP 121/79; PULSE 65; RESP 16
--- NOTE | 2024-02-29 08:29 | P.PCN ---
Date of Procedure: 02/29/24 Description of Procedure: PREOPERATIVE DIAGNOSIS: Gastroesophageal reflux disease. Morbid obesity. POSTOPERATIVE DIAGNOSIS: Gastroesophageal reflux disease. Morbid obesity. Gastritis. Acute gastric ulcer with bleeding OPERATION: Esophagogastroduodenoscopy with biopsies along esophagus, antrum and duodenum SURGEON: Lucretia Christensen MD ANESTHESIA: MAC. INDICATIONS: The patient is a 43-year-old female who presents with reflux disease. Benefits and risks of the procedure were described. Informed consent was obtained. DESCRIPTION: The patient was brought into the endoscopy suite and laid in the left lateral decubitus position. An Olympus gastroscope was passed along the posterior oropharynx down to the distal esophagus where the squamocolumnar junction was encountered at 35 cm from the incisors. The stomach was entered and no bile reflux was found. Additional findings are listed below. Biopsies with cold forceps were obtained of the antrum. The first through third portion of the duodenum was examined. Retroflexion of the scope confirmed Hill grade 2 lower esophageal valve. The squamocolumnar junction demonstrated LA grade A erosive esophagitis. The stomach was desufflated. The patient tolerated the procedure well. FINDINGS: Squamocolumnar junction 35 cm from the incisors. Diaphragmatic hiatus at 35 cm. Hill grade 2 lower esophageal valve. LA grade A erosive esophagitis. Biopsies obtained of the duodenum. Acute gastric ulcer with bleeding Chronic gastritis with biopsies obtained. RECOMMENDATIONS: Omeprazole 40 mg daily prescribed Plan - Discharge Summary Discharge Rx Participant: No New Discharge Prescriptions: New Omeprazole [PriLOSEC] 40 mg PO DAILY #14 cap Continue Paliperidone [Invega] 3 mg PO 2100 30 Days #30 tab.er.24 traZODone HCL 100 mg PO HS Divalproex Sodium [Divalproex Sodium ER] 250 mg PO DAILY busPIRone HCl [Buspar] 5 mg PO TID Estrogens, Conjugated [Premarin] 0.3 mg PO DAILY Discharge Medication List Paliperidone [Invega] 3 mg PO 2100 30 Days #30 tab.er.24 06/16/18 [Rx] Estrogens, Conjugated [Premarin] 0.3 mg PO DAILY 11/12/23 [History] busPIRone HCl [Buspar] 5 mg PO TID 11/12/23 [History] traZODone HCL 100 mg PO HS 11/12/23 [History] Divalproex Sodium [Divalproex Sodium ER] 250 mg PO DAILY 02/23/24 [History] Omeprazole [PriLOSEC] 40 mg PO DAILY #14 cap 02/29/24 [Rx] Follow up [facility]ment(s[facility] [place] [facility] Patient Instructions/Handouts: *Surgery [facility] - (Anesthesia) Discharge Instructions Outpatient Surgery, Peptic Ulcer (DC) Discharge Disposition: HOME SELF-CARE
== END 2024-02-29 08:59 | disposition home or self-care (01) ==
LOC: ORWHC2ENDO 07:30
PROVIDERS: ATTEND Surgery Plastic and Reconstructive Surgery
DX: K29.50 Unspecified chronic gastritis without bleeding (principal); K29.80 Duodenitis without bleeding; K25.0 Acute gastric ulcer with hemorrhage; K21.00 Gastro-esophageal reflux disease with esophagitis, without bleeding; E66.01 Morbid (severe) obesity due to excess calories; G47.33 Obstructive sleep apnea (adult) (pediatric); F41.9 Anxiety disorder, unspecified; F32.A Depression, unspecified; F12.90 Cannabis use, unspecified, uncomplicated; Z79.899 Other long term (current) drug therapy; Z87.891 Personal history of nicotine dependence; Z90.710 Acquired absence of both cervix and uterus
CPT/HCPCS: 88305; 43239; J2704

== ENCOUNTER → 2024-03-11 | Outpatient (CLI) | payer BC ==
[2024-03-11 16:11] LABS: INR 0.9 (<1.2); Partial Thromboplastin Time 24.4 sec (22.0-30.0)
[2024-03-12 02:12] LABS: HCT 42.6 % (37.2-46.3); HGB 14.1 g/dL (12.0-15.0); MCH 31.7 pg (27.0-32.0); MCHC 33.1 g/dL (32.0-37.0); MCV 95.7 FL (80.0-97.0); NRBC Per 100 WBC 0 X 10*3/uL (0.00-0.01); Platelet Count 252 X 10*3/uL (140-440); RBC 4.45 X 10*6/uL (4.10-5.20); WBC 7.03 X 10*3/uL (4.50-10.00)
[2024-03-12 03:16] LABS: % Iron Saturation 33.16 (12.00-45.00); ALT 37 U/L (8-44); AST 28 U/L (13-35); Albumin 4.4 g/dL (3.8-4.9); Alkaline Phosphatase 75 U/L (41-126); BUN/Creat Ratio 17.57 Ratio (12.00-20.00); Blood Urea Nitrogen 12.3 mg/dL (9.0-27.0); Calcium 9.2 mg/dL (8.7-10.3); Carbon Dioxide 21.5 mmol/L (21.6-31.8); Chloride 107 mmol/L (96-109); Chol/HDL Ratio 4.65 Ratio; Glucose 121 mg/dL (70-110); Iron 125 UG/DL (50-170); Magnesium 1.8 mg/dL (1.5-2.4); Phosphorus 3.5 mg/dL (2.4-5.1); Potassium 4.5 mmol/L (3.5-5.5); Sodium 145 mmol/L (135-145); Total Bilirubin 0.2 mg/dL (0.3-1.2); Total Iron Binding Capacity 377 UG/DL (228-460); Total Protein 6.4 g/dL (6.2-8.2)
[2024-03-12 04:10] LABS: Prealbumin 29.4 mg/dL (18.0-42.0)
== END | disposition home or self-care (01) ==
LOC: LABWHC1 14:12
PROVIDERS: ATTEND Surgery Plastic and Reconstructive Surgery
DX: E66.01 Morbid (severe) obesity due to excess calories (principal); E89.1 Postprocedural hypoinsulinemia; D50.8 Other iron deficiency anemias; K91.2 Postsurgical malabsorption, not elsewhere classified; E44.0 Moderate protein-calorie malnutrition; E45 Retarded development following protein-calorie malnutrition; E55.9 Vitamin D deficiency, unspecified; K74.1 Hepatic sclerosis; N19 Unspecified kidney failure; T56.894A Toxic effect of other metals, undetermined, initial encounter; K50.90 Crohn's disease, unspecified, without complications
CPT/HCPCS: 36415; 80053; 80061; 80307; 80323; 82306; 82525; 82607; 82728; 82746; 83036; 83540; 83550; 83721; 83735; 83970; 84100; 84134; 84255; 84425; 84443; 84590; 84630; 85027; 85610; 85730

== ENCOUNTER → 2024-06-29 | Outpatient (CLI) | payer BC ==
[2024-06-29 16:40] LABS: Prothrombin Time 10.6 sec (10.0-12.5)
[2024-06-30 02:14] LABS: HCT 46.5 % (37.2-46.3); HGB 14.7 g/dL (12.0-15.0); MCH 29.6 pg (27.0-32.0); MCHC 31.6 g/dL (32.0-37.0); MCV 93.6 FL (80.0-97.0); Mean Platelet Volume 12.4 FL (9.5-12.2); NRBC Per 100 WBC 0 X 10*3/uL (0.00-0.01); Platelet Count 364 X 10*3/uL (140-440); RBC 4.97 X 10*6/uL (4.10-5.20); RDW 11.9 % (11.5-14.5); WBC 8.22 X 10*3/uL (4.50-10.00)
[2024-06-30 03:46] LABS: Prealbumin 29.5 mg/dL (18.0-42.0)
[2024-06-30 03:49] LABS: Chol/HDL Ratio 4.59 Ratio; Phosphorus 3.9 mg/dL (2.4-5.1)
[2024-06-30 03:50] LABS: Iron 86 UG/DL (50-170); LDL Cholesterol,Calculated 101.8 mg/dL (0.0-131.0); Total Iron Binding Capacity 455 UG/DL (228-460)
[2024-06-30 05:21] LABS: ALT 38 U/L (8-44); AST 36 U/L (13-35); Albumin 4.7 g/dL (3.8-4.9); Albumin/Globulin Ratio 1.81 Ratio (1.60-3.17); Alkaline Phosphatase 58 U/L (41-126); BUN/Creat Ratio 28.11 Ratio (12.00-20.00); Blood Urea Nitrogen 25.3 mg/dL (9.0-27.0); Calcium 9.9 mg/dL (8.7-10.3); Carbon Dioxide 22.2 mmol/L (21.6-31.8); Chloride 99 mmol/L (96-109); Globulin 2.6 g/dL (1.6-3.3); Glucose 95 mg/dL (70-110); Potassium 5.1 mmol/L (3.5-5.5); Sodium 134 mmol/L (135-145); Total Bilirubin 0.3 mg/dL (0.3-1.2); Total Protein 7.3 g/dL (6.2-8.2)
[2024-06-30 11:54] LABS: Zinc, Serum 73 ug/dL (60-130)
== END ==
LOC: LABPAT 14:55
PROVIDERS: ATTEND Surgery Plastic and Reconstructive Surgery
DX: E89.1 Postprocedural hypoinsulinemia (principal); D50.8 Other iron deficiency anemias; D50.9 Iron deficiency anemia, unspecified; K91.2 Postsurgical malabsorption, not elsewhere classified; E44.0 Moderate protein-calorie malnutrition; E44.1 Mild protein-calorie malnutrition; E45 Retarded development following protein-calorie malnutrition; E46 Unspecified protein-calorie malnutrition; E55.9 Vitamin D deficiency, unspecified; E66.01 Morbid (severe) obesity due to excess calories; K74.1 Hepatic sclerosis; N19 Unspecified kidney failure; T56.894A Toxic effect of other metals, undetermined, initial encounter; K50.90 Crohn's disease, unspecified, without complications
CPT/HCPCS: 80053; 80061; 80323; 82306; 82525; 82607; 82728; 82746; 83036; 83540; 83550; 83735; 83970; 84100; 84134; 84255; 84425; 84443; 84590; 84630; 85027; 85610; 85730

== ENCOUNTER → 2024-06-29 | Outpatient (CLI) | payer BC ==
[2024-06-29 14:23] VITALS: BP 116/73; PULSE 73; RESP 16; TEMP 98.3; BMI 43.5
--- NOTE | 2024-06-29 14:47 | P.BASOAP ---
Subjective Progress Note Date: 06/29/24 She wants to lose weight. She gained weight from 257 to 278 pounds of 20 pounds. ON record 264 from 278 today. Needs urine nicotine test. Final for Jul 25. Needs [facility] on discharge. Objective - Vital Signs Vital signs: Vital Signs Temp 98.3 F 06/29/24 14:16 Pulse 73 06/29/24 14:16 Resp 16 06/29/24 14:16 BP 116/73 06/29/24 14:16 Pulse Ox FiO2 Intake & Output 06/28/24 06/29/24 06/29/24 18:59 06:59 18:59 Weight 126.099 kg Assessment/Plan Plan: Date: 06/29/24 Initial Weight: 116.573 kg Initial BMI: 40.2 Current Weight: 126.099 kg Current BMI: 43.5 Type of Surgery: Luh-en-Y Gastric Bypass Total Volume in Band: Previous Volume: Volume Removed: Volume Added: Band Size:
== END ==
LOC: BARWHC3 13:20
PROVIDERS: ATTEND Surgery Plastic and Reconstructive Surgery
DX: E66.01 Morbid (severe) obesity due to excess calories (principal); F17.210 Nicotine dependence, cigarettes, uncomplicated; Z68.41 Body mass index [BMI] 40.0-44.9, adult
CPT/HCPCS: 99211

== ENCOUNTER → 2024-07-20 | Outpatient (CLI) | payer BC ==
[2024-07-20 12:28] LABS: Partial Thromboplastin Time 27.2 sec (22.0-30.0); Prothrombin Time 10.9 sec (10.0-12.5)
[2024-07-20 15:17] LABS: HCT 47.4 % (37.2-46.3); HGB 15.6 g/dL (12.0-15.0); MCH 29.4 pg (27.0-32.0); MCHC 32.9 g/dL (32.0-37.0); MCV 89.3 FL (80.0-97.0); NRBC Per 100 WBC 0 X 10*3/uL (0.00-0.01); Platelet Count 303 X 10*3/uL (140-440); RBC 5.31 X 10*6/uL (4.10-5.20); RDW 11.6 % (11.5-14.5); WBC 6.85 X 10*3/uL (4.50-10.00)
[2024-07-20 15:43] LABS: % Iron Saturation 15.69 (12.00-45.00); ALT 29 U/L (8-44); AST 22 U/L (13-35); Albumin 4.8 g/dL (3.8-4.9); Albumin/Globulin Ratio 2.18 Ratio (1.60-3.17); Alkaline Phosphatase 54 U/L (41-126); Blood Urea Nitrogen 22.8 mg/dL (9.0-27.0); Calcium 9.7 mg/dL (8.7-10.3); Carbon Dioxide 24.1 mmol/L (21.6-31.8); Chloride 104 mmol/L (96-109); Chol/HDL Ratio 4.16 Ratio; Globulin 2.2 g/dL (1.6-3.3); Glucose 102 mg/dL (70-110); Iron 72 UG/DL (50-170); Magnesium 1.9 mg/dL (1.5-2.4); Phosphorus 3.2 mg/dL (2.4-5.1); Potassium 4.9 mmol/L (3.5-5.5); Sodium 141 mmol/L (135-145); Total Bilirubin <0.2 mg/dL (0.3-1.2); Total Iron Binding Capacity 459 UG/DL (228-460)
[2024-07-21 12:19] LABS: Zinc, Serum 90 ug/dL (60-130)
[2024-07-22 06:25] LABS: Vit B1(Thiamine) 87 ug/L (38-122)
== END | disposition home or self-care (01) ==
LOC: LABWHC1 11:42
PROVIDERS: ATTEND Surgery Plastic and Reconstructive Surgery
DX: E66.01 Morbid (severe) obesity due to excess calories (principal); E89.1 Postprocedural hypoinsulinemia; D50.8 Other iron deficiency anemias; D50.9 Iron deficiency anemia, unspecified; K91.2 Postsurgical malabsorption, not elsewhere classified; E44.0 Moderate protein-calorie malnutrition; E45 Retarded development following protein-calorie malnutrition; E55.9 Vitamin D deficiency, unspecified; K74.1 Hepatic sclerosis; N19 Unspecified kidney failure; T56.894A Toxic effect of other metals, undetermined, initial encounter; K50.90 Crohn's disease, unspecified, without complications
CPT/HCPCS: 36415; 80053; 80061; 80323; 82306; 82525; 82607; 82746; 83036; 83540; 83550; 83735; 83970; 84100; 84255; 84425; 84443; 84590; 84630; 85027; 85610; 85730

== ENCOUNTER 2024-07-25 07:50 | Inpatient (IN) | payer BC ==
[~2024-07-25 07:50] MED LIST changes: +HEPARIN SODIUM,PORCINE 5,000 UNIT/ML 1 ML VIAL SQ PRN; +HYDROmorphone 0.5 MG/0.5 ML SYRINGE IVP PRN; -LIDOCAINE 1% (10MG/ML) FOR IV START INTRADERMA PRN
--- NOTE | 2024-07-25 08:25 | P.GSHP ---
History of Present Illness H&P Date: 07/25/24 CHIEF COMPLAINT: Morbid obesity HISTORY OF PRESENT ILLNESS: Kinjal Portillo is a 44-year-old female who comes with lifelong morbid obesity. As result of morbid obesity, she has developed insulin-dependent diabetes type 2, hypertensive heart disease, obstructive sleep apnea, hyperlipidemia, osteoarthritis of the hips and knees. She has completed medical supervised weight loss. She completed medical including cardiac assessment. She has completed psychological risk assessment. All surgical op tions were reviewed. She elected for gastric bypass. At height of 5 feet 7 inches, her ideal body weight is 158 pounds. Her highest weight 277 pounds, BMI 43.5. She comes in 264 pounds. Her body mass index is 41.3. She is 106 pounds overweight. PAST MEDICAL HISTORY: 1. Morbid obesity due to excess calories 2. Body mass index of 43.5. 3. Osteoarthritis of the knees. 4. Osteoarthritis of the lower back. 5. Generalized anxiety disorder 6. Gastroesophageal reflux disease 7. Hyperlipidemia 8. Obstructive sleep apnea 9. Depressive disorder PAST SURGICAL HISTORY: 1. Upper endoscopy 2. Hysterectomy 3. section 4. Uterine ablation HOME MEDICATIONS: Reviewed ALLERGIES: Reviewed SOCIAL HISTORY: Past tobacco use. FAMILY HISTORY: No family history of ulcerative colitis disease or Crohn's disease. Family history of morbid obesity. No lupus in the family. No reports of stomach or esophageal cancer. REVIEW OF ORGAN SYSTEMS: CONSTITUTIONAL: At height of 5 feet 7 inches, her ideal body weight is 158 pounds. Her highest weight 277 pounds, BMI 43.5. She comes in 264 pounds. Her body mass index is 41.3. She is 106 pounds overweight. HEENT: Denies any active troubles with vision or hearing. ENDOCRINE: Denies diabetes. Denies hypothyroidism. CARDIOVASCULAR: Past reports of palpitations or heart attacks or chest pain. RESPIRATORY: Has daytime somnolence. GASTROINTESTINAL: Denies any bright red blood per rectum. Has gastroesophageal reflux disease. MUSCULOSKELETAL: Has lower back pain and joint pain. Has osteoarthritis of the knees. NEURO: No headaches. No seizure disorders. PSYCH: Has depression. No suicidal ideation. RHEUMATOLOGIC: No lupus. No rheumatoid arthritis. HEMATOLOGIC: Denies any abnormal bleeding or bruising. No personal history of DVTs. SKIN: Has rash. No skin cancer. PHYSICAL EXAM: VITAL SIGNS: Height 5 foot 7 inches, weight 264 pounds. BMI 41.3 GENERAL: Well-developed in no acute distress. HEENT: No scleral icterus. Extraocular movements grossly intact. Hears conversational speech. No nasal drainage. NECK: Supple without lymphadenopathy. CHEST: Nonlabored respirations with equal bilateral excursions. CARDIOVASCULAR: Regular rate and regular rhythm. Distal 2+ pulses. ABDOMEN: Obese, soft, nontender, nondistended. MUSCULOSKELETAL: No clubbing, cyanosis. NEURO: No focal or lateralizing signs. Cranial nerves 2 through 12 grossly within normal limits. PSYCH: Appropriate affect. Alert and oriented to person, place and time. SKIN: Good skin turgor. Well perfused. ASSESSMENT: 1. Morbid obesity due to excess calories 2. Body mass index of 43.5. 3. Osteoarthritis of the knees. 4. Osteoarthritis of the lower back. 5. Generalized anxiety disorder 6. Gastroesophageal reflux disease 7. Hyperlipidemia 8. Obstructive sleep apnea 9. Depressive disorder PLAN: 1. Bariatric options between a sleeve, band and a Luh-en-Y gastric bypass were reviewed in detail. The patient elected for a gastric bypass. Robotic assisted approach described. 2. The [place] [facility] Data was also reviewed with benefits and risks as described. 3. An 8 page second-generation bariatric consent form was reviewed in detail including potential of bleeding, infection, leaks, adequate weight loss, nutritional deficiencies which the patient demonstrated understanding of the risks. 4. A 2 week high-protein low caloric 800 kcal diet described to address hepatomegaly. 5. Preoperative labs including complete metabolic panel and CBC with type and screen recommended. 6. DVT prophylaxis per [place] bariat[facility] surgery collaborative. 7. Antibiotic prophylaxis. 8. Inpatient hospitalization anticipated for more than 2 nights. 9. All questions and concerns were addressed with the patient. 10. She is at elevated risk for perioperative complications secondary to obstructive sleep apnea 11. Overall, patient has expressed understanding of bariatric care including postoperative diet and commitment of lifestyle. Patient should benefit from surgical intervention for correction of her morbid obesity. 12. Will obtain EKG for obstructive sleep apnea 13. With patient pre-existing history of hysterectomy, , risk of intra-abdominal adhesions described. Alternative bariatric procedure discussed. Past Medical History Past Medical History: Hyperlipidemia, Sleep Apnea/CPAP/BIPAP Additional Past Medical History / Comment(s): uses cpap, History of Any Multi-Drug Resistant Organisms: None Reported Past Surgical History: Section, Hysterectomy, Uterine Ablation Additional Past Surgical History / Comment(s): EGD, Past Anesthesia/Blood Transfusion Reactions: No Reported Reaction Smoking Status: Former smoker - Past Family History Mother Family Medical History: Cancer Additional Family Medical History / Comment(s): Ovarian Cancer-Patient's mother is alive in her 60s. Father Family Medical History: Cancer Additional Family Medical History / Comment(s): Skin Cancer. Father is alive at age 67 with history of Depression. Brother(s) Family Medical History: No Reported History Additional Family Medical History / Comment(s): Patient has one brother with history of Depression. Sister(s) Family Medical History: No Reported History Additional Family Medical History / Comment(s): Patient has 1 sister with no major medical problems. Medications and Allergies Home Medications Medication Instructions Recorded Confirmed Type Paliperidone [Invega] 3 mg PO 2100 30 Days #30 tab.er.24 06/16/18 07/19/24 Rx Estrogens, Conjugated [Premarin] 0.3 mg PO HS 11/12/23 07/19/24 History busPIRone HCl [Buspar] 5 mg PO TID 11/12/23 07/19/24 History traZODone HCL 100 mg PO HS 11/12/23 07/19/24 History Divalproex Sodium [Divalproex 250 mg PO TID 02/23/24 07/19/24 History Sodium ER] Omeprazole [PriLOSEC] 40 mg PO DAILY #14 cap 02/29/24 07/19/24 Rx Fenofibrate Nanocrystallized 145 mg PO HS 07/19/24 07/19/24 History [Fenofibrate] Allergies Allergy/AdvReac Type Severity Reaction Status Date / Time No Known Allergies Allergy Verified 07/19/24 15:02
--- NOTE | 2024-07-25 08:32 | P.HPADDEND ---
H&P Addendum H&P Addendum Date: 07/25/24 In review of patient's records, she has history of including history with high probability of intra-abdominal scar tissue. Risk of inability to complete gastric bypass were described versus sleeve gastrectomy reviewed. Patient opted for sleeve gastrectomy on the presence of severe intra-abdominal adhesions.
[2024-07-25] MEDS: LACTATED RINGERS 1,000 ML IV SCH (08:45)
[2024-07-25] MEDS: ONDANSETRON 4 MG/2 ML VIAL IVP PRN ×2 (08:54→17:21)
[2024-07-25] MEDS: PANTOPRAZOLE 40 MG/10 ML VIAL IVP STA (08:54)
[2024-07-25] MEDS: ACETAMINOPHEN TAB 500 MG TAB PO PRN (08:57)
[2024-07-25] MEDS: CHLORHEXIDINE GLUCONATE 15 ML CUP MUCOUS MEM STA (08:58)
[2024-07-25] MEDS: SCOPOLAMINE 1 MG/72 HR PATCH TRANSDERM STA (08:58)
[2024-07-25] MEDS: ALVIMOPAN 12 MG CAPSULE PO PRN (08:58)
[2024-07-25] MEDS: MIDAZOLAM 2 MG/2 ML VIAL IV ONE (09:11)
[2024-07-25] MEDS: fentaNYL (PF) 50 MCG/ML 2 ML AMP IVP ONE (09:11)
[2024-07-25] MEDS: ENOXAPARIN 30 MG/0.3 ML SYRINGE SQ STA (09:17)
--- NOTE | 2024-07-25 09:28 | P.ANPRN ---
Procedure Note - Anesthesia - Nerve Block Performed Bilateral Erector Spinae Single Time Out Performed: Yes Date of Procedure: 07/25/24 Procedure Start Time: : Procedure Stop Time: :15 Location of Patient: PreOp Indication: Acute Post-Operative Pain, Requested by Surgeon Sedation Type: Sedate with meaningful contact maintained Preparation: Sterile Prep Position: Prone Needle Types: Pajunk Needle Gauge: 21 Ultrasound used to visualize needle placement: Yes Ultrasound used to observe medication spread: Yes Injectate: 0.5% Ropivacaine (see comment for volume) (20 ml + 10 ml NS + 4 mg Dexamethasone per side) Blood Aspirated: No Pain Paresthesia on Injection Noted: No Resistance on Injection: Normal Image Stored and Saved: Yes Events: Uneventful and Well Tolerated
[2024-07-25] MEDS ORDERED: NEOSTIGMINE 1 MG/ML 10 ML VIAL ONE (09:49)
[2024-07-25] MEDS ORDERED: PHENYLEPHRINE 10 MG/ML VIAL ONE (09:49)
[2024-07-25] MEDS ORDERED: DEXAMETHASONE SOD PHOSPHATE 4 MG/ML 1 ML VIAL ONE (09:49)
[2024-07-25] MEDS ORDERED: MIDAZOLAM 2 MG/2 ML VIAL ONE (09:49)
[2024-07-25] MEDS ORDERED: PROPOFOL 10 MG/ML 20 ML VIAL IV ONE (09:49)
[2024-07-25] MEDS ORDERED: ROPIVACAINE 5 MG/ML 30 ML VIAL ONE (09:49)
[2024-07-25] MEDS ORDERED: SUCCINYLCHOLINE CHLORIDE 200 MG/10 ML VIAL IV ONE (09:49)
[2024-07-25] MEDS ORDERED: KETAMINE HCL IN 0.9 % NACL 50 MG/5 ML SYRINGE ONE (09:49)
[2024-07-25] MEDS ORDERED: DEXMEDETOMIDINE/0.9% NACL(PMX) 400 MCG/100 ML IV ONE (09:49)
[2024-07-25] MEDS ORDERED: HYDROmorphone (PF) 1 MG/ML ONE (09:49)
[2024-07-25] MEDS ORDERED: ROCURONIUM 10 MG/ML (5 ML VIAL) IV ONE (09:49)
[2024-07-25] MEDS ORDERED: fentaNYL (PF) 50 MCG/ML 2 ML AMP ONE (09:49)
[2024-07-25] MEDS ORDERED: GLYCOPYRROLATE 0.2 MG/ML 2 ML VIAL ONE (09:49)
[2024-07-25] MEDS ORDERED: LIDOCAINE 1% INJ 10MG/ML (20 ML MDV) ONE (09:49)
[2024-07-25] MEDS ORDERED: SODIUM CHLORIDE 0.9% (PF) 10 ML VIAL ONE (09:49)
[2024-07-25] MEDS: LIDOCAINE 1%-EPI 1:100,000 20 ML VIAL SQ ONE (10:34)
[2024-07-25] MEDS: LACTATED RINGERS 1,000 ML IV ONE (10:41)
[2024-07-25] MEDS ORDERED: NALOXONE 0.4 MG/ML 1 ML VIAL IV PRN ×2 (13:58→14:01)
[2024-07-25] MEDS ORDERED: HYDROmorphone 1 MG/ML 1 ML SYRINGE IVP PRN (13:58)
[2024-07-25] MEDS ORDERED: diphenhydrAMINE 50 MG/ML 1 ML VIAL IVP PRN (13:58)
[2024-07-25] MEDS: IV FLUID CONTINUATION 1,000 ML IV ONE (14:59)
[2024-07-25] MEDS: ALBUTEROL NEBULIZED 2.5 MG/3 ML INHALATION SCH (15:32)
[2024-07-25] MEDS: SODIUM CHLORIDE 0.9% 2,000 ML IV ONE (15:38)
[2024-07-25] MEDS: DIVALPROEX ER 250 MG TAB.ER.24H PO SCH (16:23)
[2024-07-25] MEDS: busPIRone HCl 5 MG TAB PO SCH (16:24)
--- NOTE | 2024-07-25 16:24 | P.OP ---
Date of Procedure: 07/25/24 Description of Procedure: SURGEON: LONDON STEARNS MD PREOPERATIVE DIAGNOSES: 1. Morbid obesity due to excess calories 2. Body mass index of 43.5. 3. Osteoarthritis of the knees. 4. Osteoarthritis of the lower back. 5. Generalized anxiety disorder 6. Gastroesophageal reflux disease 7. Hyperlipidemia 8. Obstructive sleep apnea 9. Depressive disorder POSTOPERATIVE DIAGNOSES: 1. Morbid obesity due to excess calories 2. Body mass index of 43.5. 3. Osteoarthritis of the knees. 4. Osteoarthritis of the lower back. 5. Generalized anxiety disorder 6. Gastroesophageal reflux disease 7. Hyperlipidemia 8. Obstructive sleep apnea 9. Depressive disorder 10. Pelvic adhesions from previous hysterectomy OPERATION: 1. Robotic assisted da Elie Xi laparoscopic Robson-en-Y gastric bypass, 100 cm antecolic antegastric Robson limb, with 25 mm EEA. 2. Intraoperative esophagogastrojejunoscopy. ANESTHESIA: GETA and local ESTIMATED BLOOD LOSS: 5 mL SPECIMENS REMOVED: None. COMPLICATIONS: NONE. Operative Findings: 1. Biliopancreatic limb 60 cm 2. Bypass performed using 100 cm robson limb secondary to avoid increased tension at 150 cm. 3. Jejunojejunostomy and Javier's defects closed using 2-0 V-LOC, green 4. Leak test negative with gastrojejunal anastomosis patent and hemostatic. 5. Reinforcement sutures were placed along the gastrojejunal anastomosis at 9:00 and 12:00 including 3:00. INDICATIONS: Kinjal Portillo is a 44-year-old female who comes with lifelong morbid obesity. As result of morbid obesity, she has developed insulin- dependent diabetes type 2, hypertensive heart disease, obstructive sleep apnea, hyperlipidemia, osteoarthritis of the hips and knees. She has completed medical supervised weight loss. She completed medical including cardiac assessment. She has completed psychological risk assessment. All surgical options were reviewed. She elected for gastric bypass. At height of 5 feet 7 inches, her ideal body weight is 158 pounds. Her highest weight 277 pounds, BMI 43.5. She comes in 264 pounds. Her body mass index is 41.3. She is 106 pounds overweight. A second-generation bariatric consent form was described in detail including the possibility of protein malnutrition, leaks, gastrojejunal stricture, venous thrombosis, need for further surgery for which she demonstrated understanding. Benefits and risks of the procedure were described at length. Informed consent was obtained. DESCRIPTION: The patient was brought into the operating room theater. She was placed supine. She had received heparin subcutaneously for DVT prophylaxis. Additionally Peridex oral solution as an oral decontaminant was placed per anesthesia. After general induction, the abdomen was prepped and draped in standard sterile fashion. Ioban draping was placed along the abdomen. Menjivar catheter was avoided. A robotic da Elie Xi system was prepped and primed. Incisions were proposed at 15 cm from the xiphoid. Proposed port sites were marked with indelible marker along the anterior axillary line bilaterally, mid clavicular line bilaterally with each port marked 10 cm from each other. The robotic stapler port was marked for the right midclavicular line including along the left midclavicular line. A 5 mm 0 degrees laparoscopic trocar entry was performed along the left upper quadrant. The abdomen was insufflated to 15 mmHg pressure, which she tolerated well. Diagnostic laparoscopy demonstrated no injury to bowel, viscera, or mese ntery. The liver was consistent with her 2-week protein diet without hepatomegaly. Additionally, pelvic adhesions of omentum to the lower abdomen was found consistent with a prior C-sections. An 8 mm camera port was placed left lateral to the umbilicus at the epigastrium, 15 cm distal to the xiphoid. Next, 12-mm robot stapler port was placed along the right mid abdomen. An 12 mm port was exchanged along the left upper quadrant. An 8 mm port was placed on the left lateral abdominal wall under direct visualization. Please note that the ports were placed 18 to 20 cm away from the target anatomy of the stomach. Care was taken to check that each robotic arm was safely away from collision with the bed or the patient. Attention was brought to pelvic adhesions. The robot was docked to address her pelvic adhesions. Using grasper for arm 1, vessel sealer for arm 4, and camera for arm 2, adhesions were addressed using vessel sealer sharply of the pelvis along her prior hysterectomy site. The omentum was adherent to the abdominal wall. The small bowel was investigated along the pelvis demonstrating no interloop adhesions. Attention was now brought to the gastric bypass portion of the procedure. The robot was undocked for placement of the liver retractor. At the epigastrium, a medium sized Tina liver retractor was placed under direct visualization with the [employer] placed under the right shoulder of the patient. The patient was repositioned in reverse Trendelenburg position at 25-degrees after lowering the bed. The robot was docked over the patient. Using grasper for arm 3, a grasper for arm 1, including vessel sealer for arm 4, the robotic system was docked and primed as described. Instruments were interchanged by the actuarial assistant including endoscissors, the needle nascar driver, and stapler. I had sat at the console. Next, the transverse mesocolon was reflected into the upper abdomen for the jejunojejunostomy portion of the case. The ligament of Treitz was identified and measured 60 cm antegrade and marked using 3-0 Silk. The jejunum was divided at the 60 cm point using 60-mm blue loads above the suture measurement. The biliopancreatic limb was held in place. The Robson limb was measured 100 cm in an antegrade fashion to avoid tension along the proposed gastrojejunal anastomosis. At 100 cm along the anti-mesenteric border of the Robson limb, a jejunojejunostomy was proposed whereby enterotomies were created along the biliopancreatic limb including the Robson limb using a Bovie cautery. A stay suture of 3-0 Slik was placed to align and create the anastomosis. The enterotomies along the anti- mesenteric borders were created followed by unidirectional fire from the patient's right side using 60 mm blue loads Smart technology robotic stapler. T he jejunojejunostomy was found to be hemostatic. The enterotomy was closed after horizontal mattress stitch of 3-0 silk used to elevate the enterotomy followed by closure with the robotic stapler blue load. The jejunal limb was temporarily tacked along the left upper quadrant. Attention was now brought to the creation of the gastrojejunostomy. Along the lesser curvature of the stomach, dissection was made along the retrogastric space to allow first firing of the robotic staple. Robotic stapler 60 mm green loads and blue loads were used to divide the stomach to create the gastric pouch. The patient was then prepared for placement of a Orvil. Patient was a Mallampati 4. A 25-mm Orvil was selected for placement by the nurse second time worker. The Orvil tubing was placed anterior to the staple line of the gastric pouch and brought out through the left inferior lateral port. I re-scrubbed into the case. The robotic arms were temporarily undocked. The Orvil was then carefully and successfully navigated with the help of the nurse second time worker into the gastric pouch. The sutures were identified and divided. The tubing was from the 25 mm anvil. As the Orvil had been placed, the jejunal limb was brought proximally into the upper abdomen. No torsion was found upon the Robson limb. No tension was identified as the limb was brought along the upper abdomen. The jejunal limb was previously opened using hook cautery. The 25-mm EEA stapler was brought through the left anterior lateral port site from the left side. The EEA stapler was brought through the open jejunal limb and its needle was deployed at the antimesenteric border where the anvil were mated for approximately 1 minute upon firing. The stapler was removed after irrigating the shaft of the instrument with warm normal saline. Donuts were found to be intact and on both sides. The da Elie Xi robot arms were then re-docked. I sat at the console. The open jejunal limb defect was closed using 60 mm blue loads after releasing any tension from the blind jejunal limb. No redundancy was present for jejunal limb. The transverse mesocolon was divided for the robson limb. Reinforcement sutures were placed along the gastrojejunal anastomosis and placed along the 3:00, 9:00, 12:00 o'clock position using 3-0 Vicryl. The Javier and jejunojejunostomy mesenteric defect was closed using 2-0 V LOC, green. I then went to the head of the bed to perform the esophagogastrojejunoscopy and a leak test. An Olympus gastroscope was passed alongthe posterior oropharynx which was unremarkable for any injury to the vocal cords. The scope was passed down to the proximal portion of the pouch, whereby no active bleeding was encountered. Excellent visualization of the gastrojejunostomy anastomosis, including the Robson limb was encountered with endoscopic image obtained. The anastomosis was found to be patent without active bleeding. Residual blood was suctioned from the gastric pouch. The gastrointestinal tract was desufflated. No evidence of intraoperative leak was encountered as the gastric pouch and anastomosis were submerged under normal saline solution. The robot was then undocked. I then went back to the bedside of the patient, whereby with coordinated effort of the actuarial assistant, irrigation was aspirated from the upper abdominal cavity. Tisseel was placed circumferentially over the anastomosis of the gastrojejunostomy. The fascial defect of the EEA stapler was closed using Matt Hobbs and 0 Vicryl. All instruments and pneumoperitoneum were evacuated from the abdominal cavity. The port correlating with the EEA stapler device was cleansed with normal saline solution and hydrogen peroxide. The rest of incisions were reapproximated using 4-0 Monocryl in an interrupted subcuticular fashion. Local anesthetic was infiltrated along the skin for postop analgesia. Liquid glue was applied to the skin. OptiFoam dressing was placed along the EEA stapler site. At the end of the procedure, needle, sponge and instrument count had been verified correct by the rn medical surgical. The patient had tolerated the procedure well and was extubated and taken to the postanesthesia unit in stable condition.
[2024-07-25] MEDS: fentaNYL PCA 500 MCG/50 ML BAG IV SCH (17:01)
[2024-07-25] MEDS: 0.9% NACL WITH KCL 20 MEQ/L 1,000 ML IV SCH (17:10)
[2024-07-25] MEDS: ACETAMINOPHEN IV (For NPO) 1,000 MG in EMPTY BAG 1 BAG IVPB SCH (17:52)
[2024-07-25] MEDS ORDERED: ONDANSETRON 4 MG/2 ML VIAL IVP SCH (18:00)
[2024-07-25] MEDS: SIMETHICONE 40 MG/0.6 ML DROPS 2,000 MG/30 ML BOTTLE PO SCH (18:20)
[2024-07-25] MEDS: ceFAZolin 3 GM in SODIUM CHLORIDE 0.9% 100 ML IVPB SCH (18:22)
[2024-07-25] MEDS: PALIPERIDONE 3 MG TAB.ER.24 PO SCH (20:53)
[2024-07-25] MEDS: PANTOPRAZOLE 40 MG/10 ML VIAL IV SCH (20:53)
[2024-07-26] MEDS: 0.9% NACL WITH KCL 20 MEQ/L 1,000 ML IV SCH (06:26)
[2024-07-26] MEDS: ENOXAPARIN 30 MG/0.3 ML SYRINGE SQ SCH (08:09)
[2024-07-26 08:51] LABS: Basophils # (A) 0 X 10*3/uL (0.00-0.10); Basophils % (A) 0 %; Eosinophils # (A) 0 X 10*3/uL (0.04-0.35); Eosinophils % (A) 0 %; HCT 38.7 % (37.2-46.3); HGB 12.5 g/dL (12.0-15.0); Lymphocytes # (A) 0.91 X 10*3/uL (0.90-5.00); Lymphocytes % (A) 8.9 %; MCH 29.2 pg (27.0-32.0); MCHC 32.3 g/dL (32.0-37.0); MCV 90.4 FL (80.0-97.0); Mean Platelet Volume 12.2 FL (9.5-12.2); Monocytes # (A) 0.96 X 10*3/uL (0.20-1.00); Monocytes % (A) 9.4 %; NRBC Per 100 WBC 0 X 10*3/uL (0.00-0.01); Neutrophils # (A) 8.28 X 10*3/uL (1.80-7.70); Neutrophils % (A) 81.3 %; Platelet Count 245 X 10*3/uL (140-440); RBC 4.28 X 10*6/uL (4.10-5.20); WBC 10.19 X 10*3/uL (4.50-10.00)
[2024-07-26 09:02] VITALS: RESP 18
[2024-07-26 09:06] VITALS: TEMP 97.8
[2024-07-26 10:40] LABS: Blood Urea Nitrogen 9.4 mg/dL (9.0-27.0); Carbon Dioxide 20.9 mmol/L (21.6-31.8); Chloride 106 mmol/L (96-109); Magnesium 1.8 mg/dL (1.5-2.4); Phosphorus 1.9 mg/dL (2.4-5.1); Potassium 4.5 mmol/L (3.5-5.5); Sodium 139 mmol/L (135-145)
[2024-07-26 11:16] VITALS: BMI 41.1
[2024-07-26 12:19] VITALS: BP 134/66; PULSE 89
--- NOTE | 2024-07-26 12:36 | P.DS ---
Providers Date of admission: 07/25/24 07:50 Expected date of discharge: 07/26/24 Attending physician: Lucretia Christensen Primary care physician: Stated None Hospital Course: Discharge diagnosis 1. Morbid obesity due to excess calories 2. Body mass index of 43.5. 3. Osteoarthritis of the knees. 4. Osteoarthritis of the lower back. 5. Generalized anxiety disorder 6. Gastroesophageal reflux disease 7. Hyperlipidemia 8. Obstructive sleep apnea 9. Depressive disorder 10. Pelvic adhesions from previous hysterectomy Hospital course This is a 44-year-old female with a history of morbid obesity. She is status post Robotic assisted Luh-en-Y gastric bypass. Patient tolerated surgery well. Her pain is controlled. She is tolerating diet. She is afebrile. She has been up and ambulating. She is urinating without difficulty. She is stable for discharge. Physician Water Trainer note has been reviewed by physician. Signing provider agrees with the documented findings, assessment, and plan of care. Patient Condition at Discharge: Stable Plan - Discharge Summary Discharge Rx Participant: Yes New Discharge Prescriptions: New Simethicone 40 mg/0.6 ml Drops [Mylicon Drops] 40 mg PO PCHS PRN #30 ml PRN Reason: Gas Omeprazole [PriLOSEC] 40 mg PO DAILY #90 cap Ondansetron Odt [Zofran Odt] 4 mg PO Q8HR PRN #9 tab PRN Reason: Nausea bisacodyL [Dulcolax] 5 mg PO DAILY PRN #10 tab PRN Reason: Constipation Acetaminophen Tab [Tylenol] 1,000 mg PO Q6HR PRN #30 tablet PRN Reason: Pain Continue Paliperidone [Invega] 3 mg PO 2100 30 Days #30 tab.er.24 traZODone HCL 100 mg PO HS Divalproex Sodium [Divalproex Sodium ER] 250 mg PO TID busPIRone HCl [Buspar] 5 mg PO TID Discontinued Omeprazole [PriLOSEC] 40 mg PO DAILY #14 cap Fenofibrate Nanocrystallized [Fenofibrate] 145 mg PO HS Estrogens, Conjugated [Premarin] 0.3 mg PO HS Discharge Medication List Paliperidone [Invega] 3 mg PO 2100 30 Days #30 tab.er.24 06/16/18 [Rx] busPIRone HCl [Buspar] 5 mg PO TID 11/12/23 [History] traZODone HCL 100 mg PO HS 11/12/23 [History] Divalproex Sodium [Divalproex Sodium ER] 250 mg PO TID 02/23/24 [History] Acetaminophen Tab [Tylenol] 1,000 mg PO Q6HR PRN #30 tablet 07/26/24 [Rx] Omeprazole [PriLOSEC] 40 mg PO DAILY #90 cap 07/26/24 [Rx] Ondansetron Odt [Zofran Odt] 4 mg PO Q8HR PRN #9 tab 07/26/24 [Rx] Simethicone 40 mg/0.6 ml Drops [Mylicon Drops] 40 mg PO PCHS PRN #30 ml 07/26/24 [Rx] bisacodyL [Dulcolax] 5 mg PO DAILY PRN #10 tab 07/26/24 [Rx] Follow up [facility]ment(s[facility] [facility] 9:00 am Activity/Diet/Wound Care/Special Instructions: Liquid diet only for 2 weeks No lifting over 4 pounds in 4 weeks May Shower. No soaking in bath tubs for 2 weeks Please notify your surgeon if you develop nausea and vomiting including new onset of abdominal pain. Continue to use incentive spirometry to prevent pneumonias. Please continue to ambulate at home to prevent blood clots in legs. Follow-up at the bariatric center. May shower. Dressings to be discontinued by surgeon in the office. Drink 64 oz of fluid daily. Start protein shakes on . Notify bariatric center for temp over 101.0, increased pain, drainage from incisions. No straws or carbonated beverages. Liquid diet only. Sugar content should be less than 6 g to avoid dumping syndrome. Take MOM for constipation. CRUSH, OPEN, OR CUT TABLETS LARGER THAN A SIZE OF A TIC TAC Hold on taking the Premarin and fenofibrate until seen by surgeon in office Discharge Disposition: HOME SELF-CARE
== END 2024-07-26 13:42 | disposition home or self-care (01) | DRG 621 ==
LOC: 2ORMAIN 07:50 → 4SSUR 13:52
PROVIDERS: ADMIT Surgery Plastic and Reconstructive Surgery; ATTEND Surgery Plastic and Reconstructive Surgery
PROC: 8E0W4CZ Robotic Assisted Procedure of Trunk Region, Percutaneous Endoscopic Approach (ICD-10-PCS; 2024-07-25)
PROC: 0D164ZA Bypass Stomach to Jejunum, Percutaneous Endoscopic Approach (ICD-10-PCS; principal; 2024-07-25 09:45)
DX: E66.01 Morbid (severe) obesity due to excess calories (principal); E11.9 Type 2 diabetes mellitus without complications; I11.9 Hypertensive heart disease without heart failure; E78.5 Hyperlipidemia, unspecified; F32.A Depression, unspecified; F41.1 Generalized anxiety disorder; Z68.41 Body mass index [BMI] 40.0-44.9, adult; G47.33 Obstructive sleep apnea (adult) (pediatric); K21.9 Gastro-esophageal reflux disease without esophagitis; M16.0 Bilateral primary osteoarthritis of hip; M17.0 Bilateral primary osteoarthritis of knee; N73.6 Female pelvic peritoneal adhesions (postinfective); Z79.4 Long term (current) use of insulin; Z79.899 Other long term (current) drug therapy; Z87.891 Personal history of nicotine dependence; Z90.710 Acquired absence of both cervix and uterus; Z98.891 History of uterine scar from previous surgery
CPT/HCPCS: 64999; 80051; 82310; 82565; 83735; 84100; 84520; 85025; 86850; 86900; 86901; 94640; 94760

== ENCOUNTER → 2024-07-27 | Outpatient (CLI) | payer BC ==
[2024-07-27 11:08] VITALS: BP 118/74; PULSE 80; TEMP 98.1; BMI 42.0
--- NOTE | 2024-07-27 14:05 | FL ---
EXAMINATION TYPE: FL barium swallow DATE OF EXAM: 07/27/2024 COMPARISON: HISTORY: Post Luh-en-Y TECHNIQUE: A single contrast Limited UGI study is performed. FINDINGS: Water-soluble contrast was utilized. Distal esophagus appears unremarkable. Residual stomach appears normal. There is slight delay in contrast emptying through to the proximal duodenum. No persistent st enosis identified. There is no extravasation of contrast is evident. No free air is under the diaphra gm IMPRESSION: 1. Unremarkable postsurgical limited upper GI. No persistent stenosis or extravasation evident. [facility], , 07/27/2024 2:03 PM
== END ==
LOC: BARWHC3 09:59
PROVIDERS: ATTEND Surgery Plastic and Reconstructive Surgery
DX: R13.10 Dysphagia, unspecified (principal)
CPT/HCPCS: 74220; 99213; Q9967

== ENCOUNTER → 2024-08-03 | Outpatient (CLI) | payer BC ==
[2024-08-03 14:50] VITALS: BP 111/75; PULSE 76; RESP 16; TEMP 97.7; BMI 39.9
--- NOTE | 2024-08-03 15:27 | P.BASOAP ---
Subjective Progress Note Date: 08/03/24 She is s/p bypass. She is keeping up fluids. SHe lost 23 pounds in month. No problems. No infection. Has seroma along along the left upper quadrant. Bowels are ok. Off restrictions after surgery. Objective - Vital Signs Vital signs: Vital Signs Temp 97.7 F 08/03/24 14:40 Pulse 76 08/03/24 14:40 Resp 16 08/03/24 14:40 BP 111/75 08/03/24 14:40 Pulse Ox FiO2 Intake & Output 08/02/24 08/03/24 08/03/24 18:59 06:59 18:59 Weight 115.666 kg Assessment/Plan Plan: Date: 08/03/24 Initial Weight: 116.573 kg Initial BMI: 40.2 Current Weight: 115.666 kg Current BMI: 39.9 Type of Surgery: Total Volume in Band: Previous Volume: Volume Removed: Volume Added: Band Size:
== END ==
LOC: BARWHC3 14:22
PROVIDERS: ATTEND Surgery Plastic and Reconstructive Surgery
DX: E66.01 Morbid (severe) obesity due to excess calories (principal); Z71.3 Dietary counseling and surveillance; Z68.39 Body mass index [BMI] 39.0-39.9, adult; F17.210 Nicotine dependence, cigarettes, uncomplicated
CPT/HCPCS: 97802; 99211

== ENCOUNTER → 2024-09-14 | Outpatient (CLI) | payer BC ==
[2024-09-14 15:17] VITALS: BP 100/71; PULSE 72; RESP 16; TEMP 98.1; BMI 38.2
--- NOTE | 2024-09-14 15:52 | P.BASOAP ---
Subjective Progress Note Date: 09/14/24 No heartburn. S/P gasric bypass 7 weeks. Has gas. No pain. No chugging fluids. She eats cheese for gas. Coffee is once daily. She has more burping. No bloating. Due for labs. Protein goal 75 to 90 grams. Goal to 150 pounds. Objective - Vital Signs Vital signs: Vital Signs Temp 98.1 F 09/14/24 15:09 Pulse 72 09/14/24 15:09 Resp 16 09/14/24 15:09 BP 100/71 09/14/24 15:09 Pulse Ox FiO2 Intake & Output 09/13/24 09/14/24 09/14/24 18:59 06:59 18:59 Weight 110.677 kg Assessment/Plan Plan: Date: 09/14/24 Initial Weight: 116.573 kg Initial BMI: 40.2 Current Weight: 110.677 kg Current BMI: 38.2 Type of Surgery: Total Volume in Band: Previous Volume: Volume Removed: Volume Added: Band Size:
[2024-09-14 17:28] LABS: Partial Thromboplastin Time 23.8 sec (22.0-30.0); Prothrombin Time 10.9 sec (10.0-12.5)
[2024-09-15 02:00] LABS: HGB 14.8 g/dL (12.0-15.0); MCH 29.8 pg (27.0-32.0); MCHC 32.9 g/dL (32.0-37.0); MCV 90.7 FL (80.0-97.0); Mean Platelet Volume 12.7 FL (9.5-12.2); NRBC Per 100 WBC 0 X 10*3/uL (0.00-0.01); Platelet Count 276 X 10*3/uL (140-440); RBC 4.96 X 10*6/uL (4.10-5.20); RDW 12.9 % (11.5-14.5); WBC 5.54 X 10*3/uL (4.50-10.00)
[2024-09-15 02:38] LABS: % Iron Saturation 14.62 (12.00-45.00); ALT 55 U/L (8-44); AST 32 U/L (13-35); Albumin 4.6 g/dL (3.8-4.9); Albumin/Globulin Ratio 2.09 Ratio (1.60-3.17); Alkaline Phosphatase 63 U/L (41-126); Blood Urea Nitrogen 12.1 mg/dL (9.0-27.0); Calcium 9.4 mg/dL (8.7-10.3); Chloride 108 mmol/L (96-109); Globulin 2.2 g/dL (1.6-3.3); Glucose 76 mg/dL (70-110); Iron 62 UG/DL (50-170); LDL Cholesterol,Calculated 73.3 mg/dL (0.0-131.0); Phosphorus 2.9 mg/dL (2.4-5.1); Potassium 4.7 mmol/L (3.5-5.5); Sodium 142 mmol/L (135-145); Total Bilirubin 0.3 mg/dL (0.3-1.2); Total Iron Binding Capacity 424 UG/DL (228-460); Total Protein 6.8 g/dL (6.2-8.2)
[2024-09-16 12:14] LABS: Zinc, Serum 130 ug/dL (60-130)
[2024-09-19 12:26] LABS: Vit B1(Thiamine) 114 ug/L (38-122)
[2024-09-20 06:12] LABS: Vitamin A 74 ug/dL (38-106)
== END ==
LOC: BARWHC3 14:35
PROVIDERS: ATTEND Surgery Plastic and Reconstructive Surgery
DX: E66.01 Morbid (severe) obesity due to excess calories (principal); F17.210 Nicotine dependence, cigarettes, uncomplicated; Z68.38 Body mass index [BMI] 38.0-38.9, adult
CPT/HCPCS: 80053; 80061; 82306; 82525; 82607; 82728; 82746; 83036; 83540; 83550; 83735; 83970; 84100; 84255; 84425; 84443; 84590; 84630; 85027; 85610; 85730; 97803; 99211

== ENCOUNTER → 2024-11-09 | Outpatient (CLI) | payer BC ==
[2024-11-09 14:56] VITALS: BP 101/72; PULSE 78; RESP 16; TEMP 97.8; BMI 35.5
--- NOTE | 2024-11-09 15:32 | P.BASOAP ---
Subjective Progress Note Date: 11/09/24 She is burping unexpectedly. Labs are great. No heartburn. So she is eating foods thatr cause gas. Protein 90+ grams. Lost 278 t0 227. Wants to be 150 pounds. Goal of 70 pounds, She is not exercising. She is gartdening. 3 months. Water is 90 oz daily. Objective - Vital Signs Vital signs: Vital Signs Temp 97.8 F 11/09/24 14:50 Pulse 78 11/09/24 14:50 Resp 16 11/09/24 14:50 BP 101/72 11/09/24 14:50 Pulse Ox FiO2 Intake & Output 11/08/24 11/09/24 11/09/24 18:59 06:59 18:59 Weight 102.965 kg Assessment/Plan Plan: Date: 11/09/24 Initial Weight: 116.573 kg Initial BMI: 40.2 Current Weight: 102.965 kg Current BMI: 35.5 Type of Surgery: Total Volume in Band: Previous Volume: Volume Removed: Volume Added: Band Size:
[2024-11-09 17:28] LABS: Partial Thromboplastin Time 24.6 sec (22.0-30.0); Prothrombin Time 10.9 sec (10.0-12.5)
[2024-11-10 01:51] LABS: HCT 45.2 % (37.2-46.3); HGB 14.6 g/dL (12.0-15.0); MCHC 32.3 g/dL (32.0-37.0); Mean Platelet Volume 12.3 FL (9.5-12.2); NRBC Per 100 WBC 0 X 10*3/uL (0.00-0.01); Platelet Count 296 X 10*3/uL (140-440); RBC 4.86 X 10*6/uL (4.10-5.20); WBC 5.92 X 10*3/uL (4.50-10.00)
[2024-11-10 02:36] LABS: Prealbumin 27.7 mg/dL (18.0-42.0)
[2024-11-10 02:48] LABS: % Iron Saturation 13.83 (12.00-45.00); ALT 55 U/L (8-44); AST 34 U/L (13-35); Albumin 4.6 g/dL (3.8-4.9); Alkaline Phosphatase 59 U/L (41-126); Calcium 9.4 mg/dL (8.7-10.3); Carbon Dioxide 24.1 mmol/L (21.6-31.8); Chloride 104 mmol/L (96-109); Globulin 2.3 g/dL (1.6-3.3); Glucose 82 mg/dL (70-110); Iron 61 UG/DL (50-170); LDL Cholesterol,Calculated 54.6 mg/dL (0.0-131.0); Phosphorus 3.4 mg/dL (2.4-5.1); Potassium 4.2 mmol/L (3.5-5.5); Sodium 139 mmol/L (135-145); Total Bilirubin 0.3 mg/dL (0.3-1.2); Total Iron Binding Capacity 441 UG/DL (228-460); Total Protein 6.9 g/dL (6.2-8.2)
[2024-11-10 12:34] LABS: Zinc, Serum 68 ug/dL (60-130)
[2024-11-11 08:35] LABS: Vit B1(Thiamine) 111 ug/L (38-122)
[2024-11-11 09:57] LABS: Vitamin A 84 ug/dL (38-106)
[2024-11-11 21:20] LABS: Selenium 173 mcg/L (63-160)
== END ==
LOC: BARWHC3 14:17
PROVIDERS: ATTEND Surgery Plastic and Reconstructive Surgery
DX: E66.01 Morbid (severe) obesity due to excess calories (principal); Z68.35 Body mass index [BMI] 35.0-35.9, adult; D50.8 Other iron deficiency anemias; K91.2 Postsurgical malabsorption, not elsewhere classified; E44.0 Moderate protein-calorie malnutrition; E45 Retarded development following protein-calorie malnutrition; E55.9 Vitamin D deficiency, unspecified; K74.1 Hepatic sclerosis; N19 Unspecified kidney failure; T56.894A Toxic effect of other metals, undetermined, initial encounter; K50.90 Crohn's disease, unspecified, without complications; Z71.3 Dietary counseling and surveillance; F17.200 Nicotine dependence, unspecified, uncomplicated
CPT/HCPCS: 80053; 80061; 82306; 82525; 82607; 82728; 82746; 83036; 83540; 83550; 83735; 83970; 84100; 84134; 84255; 84425; 84443; 84590; 84630; 85027; 85610; 85730; 97803; 99211

== ENCOUNTER → 2025-02-02 | Outpatient (CLI) | payer BC ==
--- NOTE | 2025-02-02 15:09 | MM ---
Reason for Exam: Screening (asymptomatic). Patient History: Menarche at age 12. First Full-Term at age 20. Hysterectomy at age 39. Currently using Estrogen, starting at age 41. Risk Values: Kandice 5 year model risk: 0.7%. NCI Lifetime model risk: 8.6%. Prior Study Comparison: No prior studies available for comparison. Tissue Density: There are scattered areas of fibroglandular density. Findings: Analyzed By CAD. No significant mass, suspicious microcalcification, or other discrete abnormality is seen. Overall Assessment: Negative, BI-RAD 1 Management: Screening Mammogram of both breasts in 1 year. Patient should continue monthly self-breast exams. A clinical breast exam by your physician is recommended on an annual basis. This exam should not preclude additional follow-up of suspicious palpable abnormalities. Note on Kandice scores and lifetime risk: 1. A Kandice score greater than 3% is considered moderate risk. If this is the case, consider specialist referral to assess eligibility for a risk reducing agent. 2. If overall lifetime risk for the development of breast cancer is 20% or higher, the patient may qualify for future screening with alternating mammogram and breast MRI. [facility], , 02/02/2025 3:06 PM. Electronically signed and approved by: Leandro Hurtado M.D. Radiologist
== END | disposition home or self-care (01) ==
LOC: RADMAMWWP 13:57
PROVIDERS: ATTEND Family Medicine
DX: Z12.31 Encounter for screening mammogram for malignant neoplasm of breast (principal); R92.323 Mammographic fibroglandular density, bilateral breasts
CPT/HCPCS: 77063; 77067

== ENCOUNTER → 2025-02-08 | Outpatient (CLI) | payer BC ==
[2025-02-08 13:17] VITALS: BP 106/65; PULSE 64; RESP 16; TEMP 98; BMI 33.6
--- NOTE | 2025-02-08 13:45 | P.BASOAP ---
Subjective Progress Note Date: 02/08/25 Still on cholesterol medication. Stop fenofibrate. No longer needed. Wants 150 pounds. Want another 60 pounds. Lost 50+ pounds. Labs today. No heartburn. Need food journal. Objective - Vital Signs Vital signs: Vital Signs Temp 98.0 F 02/08/25 13:03 Pulse 64 02/08/25 13:03 Resp 16 02/08/25 13:03 BP 106/65 02/08/25 13:03 Pulse Ox FiO2 Intake & Output 02/07/25 02/08/25 02/08/25 18:59 06:59 18:59 Weight 97.522 kg Assessment/Plan Plan: Date: 02/08/25 Initial Weight: 116.573 kg Initial BMI: 40.2 Current Weight: 97.522 kg Current BMI: 33.6 Type of Surgery: Total Volume in Band: Previous Volume: Volume Removed: Volume Added: Band Size:
[2025-02-08 15:21] LABS: Partial Thromboplastin Time 23.6 sec (22.0-30.0); Prothrombin Time 10.6 sec (10.0-12.5)
[2025-02-08 19:35] LABS: HGB 14.4 g/dL (12.0-15.0); MCH 30.3 pg (27.0-32.0); MCV 94.7 FL (80.0-97.0); Mean Platelet Volume 12.3 FL (9.5-12.2); NRBC Per 100 WBC 0 X 10*3/uL (0.00-0.01); Platelet Count 299 X 10*3/uL (140-440); RBC 4.75 X 10*6/uL (4.10-5.20); RDW 12.1 % (11.5-14.5); WBC 6.27 X 10*3/uL (4.50-10.00)
[2025-02-08 19:49] LABS: Prealbumin 26.7 mg/dL (18.0-42.0)
[2025-02-08 20:21] LABS: % Iron Saturation 19.43 (12.00-45.00); ALT 35 U/L (8-44); AST 28 U/L (13-35); Albumin 4.5 g/dL (3.8-4.9); Albumin/Globulin Ratio 1.88 Ratio (1.60-3.17); Alkaline Phosphatase 68 U/L (41-126); BUN/Creat Ratio 30.89 Ratio (12.00-20.00); Blood Urea Nitrogen 27.8 mg/dL (9.0-27.0); Calcium 9.2 mg/dL (8.7-10.3); Carbon Dioxide 22.2 mmol/L (21.6-31.8); Chloride 111 mmol/L (96-109); Globulin 2.4 g/dL (1.6-3.3); Glucose 69 mg/dL (70-110); Iron 89 UG/DL (50-170); LDL Cholesterol,Calculated 56.1 mg/dL (0.0-131.0); Magnesium 2.1 mg/dL (1.5-2.4); Phosphorus 3.9 mg/dL (2.4-5.1); Potassium 4.2 mmol/L (3.5-5.5); Sodium 146 mmol/L (135-145); Total Bilirubin 0.4 mg/dL (0.3-1.2); Total Iron Binding Capacity 458 UG/DL (228-460); Total Protein 6.9 g/dL (6.2-8.2)
[2025-02-09 10:55] LABS: Zinc, Serum 81 ug/dL (60-130)
[2025-02-10 06:11] LABS: Vitamin A 88 ug/dL (38-106)
== END ==
LOC: BARWHC3 13:02
PROVIDERS: ATTEND Surgery Plastic and Reconstructive Surgery
DX: E66.01 Morbid (severe) obesity due to excess calories (principal); E89.1 Postprocedural hypoinsulinemia; D50.9 Iron deficiency anemia, unspecified; K91.2 Postsurgical malabsorption, not elsewhere classified; E44.1 Mild protein-calorie malnutrition; E55.9 Vitamin D deficiency, unspecified; K74.1 Hepatic sclerosis; T56.894A Toxic effect of other metals, undetermined, initial encounter; K50.90 Crohn's disease, unspecified, without complications; F17.200 Nicotine dependence, unspecified, uncomplicated; Z68.33 Body mass index [BMI] 33.0-33.9, adult
CPT/HCPCS: 80053; 80061; 82306; 82525; 82607; 82728; 82746; 83036; 83540; 83550; 83735; 83970; 84100; 84134; 84255; 84425; 84443; 84590; 84630; 85027; 85610; 85730; 99211